=== PATIENT | male | born 1985 | race Caucasian/White ===

== ENCOUNTER 2020-01-07 11:48 | Outpatient (CLI) | payer OTHER, SELFPAY ==
[2020-01-07 12:09] VITALS: BMI 34.2
--- NOTE | 2020-01-07 12:09 | ECG_ITS ---
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 Interpretive Statements NAME OF STUDY: TREADMILL STRESS TEST INDICATION: Chest Pain, PROCEDURE: At the baseline, the patient's blood pressure was 124/85 with a heart rate of 103. The baseline electrocardiogram showed sinus tachycardia with normal ST-Ts. Poor R wave progression. Incomplete right bundle branch block. The patient exercised for 5 minutes and 59 seconds on a standard [place] protocol. Patient attained a maximum heart rate of 157 beats per minute(85 % of the maximum predicted heart rate) with a blood pressure at the peak exercise of 193/94 mm Hg. The EKG at the peak exercise revealed no significant changes. Patient did not have any chest pain or any significant cardiac arrhythmias with the exercise During the recovery phase, there were no new changes. Blood pressure at the end of the recovery phase was 142/80 mm Hg with a heart rate of 109 per minute. CONCLUSION: 1. No significant EKG changes with the treadmill exercise. 2. No exercise-induced chest pain or cardiac arrhythmia 3. Impaired exercise tolerance, attained a maximum of 7.0 METs 4. Hypertensive response to exercise Electronically Signed On 01-09-2020 10:50:14 CDT by Arnold Magana M.D. [id number]
[2020-01-07 12:24] VITALS: BP 167/48; PULSE 99
--- NOTE | 2020-01-07 15:00 | USCV_ITS ---
Tim Mercer Age: 34 Gender: M : 1985 Exam Date: 01/07/2020 12:42 Ordering Phys: Arnold Magana MD ([email or web address]) Technologist: Marysol Robin [place] [facility] [place]: BALS AND CHEST PAIN BP: / HR: 102 Rhythm: Sinus Technical Quality: Very technically difficult study MEASUREMENTS (Male / Female) Normal Values 2D ECHO LV Diastolic Diameter PLAX 4.5 cm 4.2 - 5.9 / 3.9 - 5.3 cm LV Systolic Diameter PLAX 3.2 cm LV Chamber Size 3.2 cm IVS Diastolic Thickness 1.6 cm 0.6 - 1.0 / 0.6 - 0.9 cm IVS Systolic Thickness 1.5 cm LVPW Diastolic Thickness 1.2 cm 0.6 - 1.0 / 0.6 - 0.9 cm LVPW Systolic Thickness 1.8 cm RV Chamber Size 2.7 cm LVOT Diameter 2.1 cm LV Ejection Fraction 2D Teich 55.9 % LV Ejection Fraction MOD 2C 50.4 % LV Ejection Fraction 2C AL 51.2 % LA Diameter 3.8 cm LA Width 3.3 cm LA Height 3.8 cm RA Width 2.6 cm RA Height 3.2 cm Aorta at Sinotubular Diameter 3.2 cm M-MODE LV Diastolic Diameter MM 4.1 cm 4.2 - 5.9 / 3.9 - 5.3 cm LV Systolic Diameter MM 2.3 cm LV Ejection Fraction MM Teich 74.2 % IVS Diastolic Thickness MM 1.0 cm 0.6 - 1.0 / 0.6 - 0.9 cm IVS Systolic Thickness MM 1.4 cm LVPW Diastolic Thickness MM 0.9 cm 0.6 - 1.0 / 0.6 - 0.9 cm LVPW Systolic Thickness MM 1.7 cm RV Diastolic Diameter MM 1.8 cm Aortic Annulus Diameter 3.3 cm LA Ao Ratio MM 1.1 MV E Point Septal Separation 0.7 cm DOPPLER AV Peak Velocity 141.0 cm/s LVOT Peak Velocity 98.0 cm/s AV Area Cont Eq vti 2.8 cm squared AV Area Cont Eq pk 2.3 cm squared MV Area PHT 8.1 cm squared Mitral E to A Ratio 0.9 MV E' Velocity 75.0 cm/s TR Peak Velocity 123.3 cm/s TR Peak Gradient 6.1 mmHg TR Mean Velocity 87.8 cm/s TR Mean Gradient 3.6 mmHg TR Velocity Time Integral 26.0 cm TV Peak E Velocity 85.0 cm/s Right Atrial Pressure 3.0 mmHg Pulmonary Artery Systolic Pressu 9.1 mmHg PV Peak Velocity 90.0 cm/s RV Acceleration Time 0.2 s RV Ejection Time 0.3 s RV AcT/ET 0.7 FINDINGS Left Ventricle Normal left ventricular size and systolic function, EF 55 %. No regional wall motion abnormalities. Right Ventricle Possibly of normal size ejection fraction Right Atrium The right atrium is normal in size. Left Atrium The left atrium is normal in size. Mitral Valve No gross abnormalities noted . Aortic Valve No gross abnormalities noted . Tricuspid Valve Trace tricuspid valve regurgitation. Pulmonic Valve Pulmonic valve not well visualized. Pericardium No pericardial effusion. Aorta Normal ascending aorta dimension. CONCLUSIONS Normal left ventricular size and systolic function, EF 55 %. No regional wall motion abnormalities. Trace tricuspid valve regurgitation. There is no pericardial effusion. There are no intracardiac masses. No previous study is available for comparison. Dr Arnold Magana MD FACC (Electronically Signed) Final Date: 07 January 2020 17:58 S
== END 2020-01-07 11:49 | disposition home or self-care (01) ==
LOC: CDL 11:51
PROVIDERS: PCP Electrodiagnostic Medicine; Visit Provider Internal Medicine Cardiovascular Disease
DX: R07.9 Chest pain, unspecified (principal); R06.02 Shortness of breath; R06.00 Dyspnea, unspecified; I07.1 Rheumatic tricuspid insufficiency
CPT/HCPCS: 93017; 93306

== ENCOUNTER 2020-11-28 19:37 | Emergency (ER) | payer OTHER, SELFPAY ==
[2020-11-28 19:56] VITALS: BP 119/83; PULSE 88; RESP 17; TEMP 36.7; O2SAT 98; BMI 40.4
--- NOTE | 2020-11-28 22:16 | ECG_ITS ---
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 Measurements Intervals [place] Rate: 76 P: 14 NV: 167 QRS: 8 QRSD: 101 T: 46 QT: 363 QTc: 409 Interpretive Statements SINUS RHYTHM INDETERMINATE AXIS ATYPICAL ECG No previous ECG available for comparison Electronically Signed On 11-29-2020 21:10:48 CDT by Arnold Magana M.D. [id number]
--- NOTE | 2020-11-28 22:35 | XRR_ITS ---
PROCEDURE INFORMATION: Exam: XR Chest Exam date and time: 11/28/2020 10:35 PM Age: 35 years old Clinical indication: Other: Dizzy; Additional info: Dizziness TECHNIQUE: Imaging protocol: XR of the chest. Views: 1 view. COMPARISON: No relevant prior studies available. FINDINGS: Lungs: Unremarkable. No consolidation. Pleural spaces: Unremarkable. No pleural effusion. No pneumothorax. Heart/Mediastinum: Unremarkable. No cardiomegaly. Bones/joints: Unremarkable. XR/XR chest 1V portable [id number] IMPRESSION: No acute findings.
[2020-11-28 22:49] LABS: Basophils % 0.5 %; Eosinophils # 0.2 10^3/uL (0.0-0.8); Eosinophils % 2.4 %; Hematocrit 44.1 % (42.0-52.0); Lymphocytes # 3.5 10^3/uL (0.8-4.8); Lymphocytes % 41.9 %; Mean Corpuscular Hemoglobin 32.7 pg (28.0-34.0); Mean Corpuscular Volume 96.1 fL (80-94); Mean Platelet Volume 9.3 fL (7.4-10.4); Monocytes # 0.6 10^3/uL (0.2-0.9); Monocytes % 6.6 %; Neutrophils # 4.03 10^3/uL (1.8-7.7); Neutrophils % 48.1 %; Nucleated Red Blood Cells % 0 %; Platelet Count 285 10^3/cmm (130-400); Red Blood Count 4.59 10^6/uL (4.1-5.3); Red Cell Distribution Width 11.9 % (12.1-15.1); White Blood Count 8.4 10^3/uL (4.0-10.0)
[2020-11-28 23:06] LABS: Troponin(5th) Baseline 6 ng/L (0-15)
[2020-11-28 23:07] LABS: Alanine Aminotransferase 24 U/L (0-41); Albumin Level 3.7 g/dL (3.5-5.2); Alkaline Phosphatase 96 IU/L (40-130); Anion Gap 15.9 (5-19); Aspartate Amino Transferase 16 U/L (0-40); Blood Urea Nitrogen 13 mg/dL (6-20); Calcium 9.2 mg/dL (8.5-10.5); Carbon Dioxide 26 mmol/L (22-29); Chloride 100 mmol/L (98-107); Globulin 2.8 g/dL (1.3-4.6); Glomerular Filtration Rate 75.3 mL/min (90-130); Glucose 101 mg/dL (65-115); Lipase 33 U/L (13-60); Osmolality Calculated 286 mOsm/kg (285-295); Potassium 3.9 mmol/L (3.5-5.1); Sodium 138 mmol/L (136-145); Total Bilirubin 0.2 mg/dL (0.15-1.2); Total Protein 6.5 g/dL (6.6-8.7)
[2020-11-28 23:20] VITALS: BP 118/78; BP 123/85; BP 128/77; PULSE 79; PULSE 80; PULSE 88
[2020-11-28 23:49] VITALS: BP 142/46; PULSE 73; RESP 18; O2SAT 98
[2020-11-28 23:49] LABS: Add Urine Microscopic? NO; Charge for UA Resulting for Rev
[2020-11-29 00:04] LABS: Bilirubin Urine Neg (Negative); Blood Urine Neg (Negative); Glucose Urine UA 2+ (Normal); Ketones Urine Negative (Negative); Leukocyte Esterase Urine Negative (Negative); Nitrate Urine Negative (Negative); Protein Urine Neg (Negative); Specific Gravity, Urine 1.015 (1.005-1.030); Urine Appearance Clear (CLEAR); Urine Color Yellow (Yellow); Urobilinogen Urine Norm (Negative); pH Urine 5 (5-7)
[2020-11-29 00:13] VITALS: BP 138/81; PULSE 78; RESP 16; O2SAT 98
[2020-11-29 00:41] LABS: Troponin 5 2HR Delta 0 ABS# (0-10)
--- NOTE | 2020-11-29 00:55 | W.ED.DIZZY ---
HPI - Dizziness General: Chief Complaint: Abdominal Pain Stated Complaint: irregular hr/high bp Time Seen by Provider: 11/28/20 22:10 Source: patient and family () Mode of arrival: ambulatory Limitations: no limitations History of Present Illness: HPI Narrative: Patient is a 35-year-old male with a history of hypertension who presents to the emergency department with complaints of dizziness and presyncopal episode, some abnormal sensation at the back of his head. He denies any chest pain or difficulty breathing. Denies any cough. Denies any diarrhea but endorsed some abdominal pain earlier today. The pain has resolved now. He is here to be evaluated because he does not feel well. MD elicited complaint: dizziness and lightheadedness Onset (ago): hour(s) Timing: sudden onset Severity: moderate History of similar symptoms: No Exacerbating factors: nothing Relieving factors: nothing Associated symptoms: Reports nausea; Denies change in hearing, chest pain, chills, cough, diaphoresis, ear discharge, ear pressure, fevers/chills, headache(s), malaise, nasal congestion, palpitations, rash, short of breath, syncope, tinnitus, vomiting or weakness Associated neuro symptoms: Deny confusion, difficulty speaking, dysphagia, diplopia, extremity weakness, facial numbness, facial weakness, gait changes, numbness in extremities or visual changes Review of Systems General: Reports: 10 or more systems reviewed and unremarkable except in HPI and below Const: Denies: chills, malaise or diaphoresis ENMT: Denies: ear discharge, change in hearing, tinnitus or nasal congestion Card: Denies: chest pain, palpitations or syncope GI: Reports: nausea; Denies: vomiting or dysphagia Neuro: Denies: headache(s), numbness in extremities or confusion PFS ED PFSH: Medical History (Reviewed 11/29/20 @ 01:19 by Greg Osuna MD, [facility] [place]) Atypical chest pain Benign essential HTN BLAS (dyspnea on exertion) History of hypertension Hx of chest pain Hx of obesity Obstructive sleep apnea Surgical History (Reviewed 11/29/20 @ 01:19 by Greg Osuna MD, [facility] [place]) H/O hand surgery History of appendectomy History of throat surgery S/P ACL repair Family History (Reviewed 11/29/20 @ 01:19 by Greg Osuna MD, [facility] [place]) Other CAD (coronary artery disease) Diabetes Hypertension Lung disease Psychiatric illness Denies family history of Dementia Hyperlipidemia Chronic kidney disease (CKD) Family history of premature coronary artery disease Cancer Stroke Social History (Reviewed 11/29/20 @ 01:19 by Greg Osuna MD, [facility] [place]) Smoking and tobacco status: former smoker Quit status (tobacco): has quit using tobacco Year quit tobacco: 2009 Alcohol intake: never Lives independently: Yes Household members: spouse and children Housing: House Marital status: Current occupational status: employed 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 [employer] Physical Exam Const: COMMON NORMALS: no acute distress, average body habitus, patient oriented x3, no limitations, healthy appearing, alert and well nourished HENMT: COMMON NORMALS: normocephalic, atraumatic and moist oral mucous membranes HEAD & SCALP: normocephalic and atraumatic Eye: COMMON NORMALS: Equal, round and reactive pupils present, EOMs intact bilaterally, conjunctivae normal and no scleral icterus CONJUNCTIVA: Yes conjunctivae normal PUPIL: Yes Equal, round and reactive pupils present Neck/C-Spine: COMMON NORMALS: full ROM, supple, no meningeal signs, no JVD and No carotid bruits Chest: COMMONS NORMALS: normal inspection of the chest and normal palpation of entire chest wall Resp: COMMON NORMALS: normal respiratory effort, No retractions, No use of accessory muscles, clear to auscultation bilaterally and percussion normal AUSCULTATION: clear to auscultation bilaterally PERCUSSION: percussion normal Cardio: COMMON NORMALS: no JVD, regular rate, regular rhythm, S1 normal heart sound present, S2 normal heart sound present, No gallops present (Cardio), No clicks present (Cardio), No murmurs present (Cardio), No rub (Cardio) and Peripheral pulses 2+ throughout RATE: regular rate RHYTHM: regular rhythm HEART SOUNDS: S1 normal heart sound present and S2 normal heart sound present PERIPHERAL PULSES: Peripheral pulses 2+ throughout GI: COMMON NORMALS: Normal to inspection, nondistended, normoactive bowel sounds present, Soft to palpation, non-tender, No hepatosplenomegaly present, no masses and no bruits PALPATION: Yes Soft to palpation and Yes No hepatosplenomegaly present Extremity: COMMON NORMALS: normal to inspection, full ROM, capillary refill normal, no calf tenderness and no pedal edema Neuro: COMMON NORMALS: patient oriented x3 SENSORIUM/ORIENTATION: Yes alert MENINGEAL SIGNS: Yes no meningeal signs Skin: COMMON NORMALS: no rashes or lesions noted, no wounds, turgor normal, no jaundice, no petechiae and no mottling GENERAL SKIN EXAM: no rashes or lesions noted and turgor normal Course Reevaluation(s): Reevaluation #1: Discussed lab and imaging findings with patient and his . Negative for acute findings. He will be discharged home with no new orders. They voiced understanding and agreement with the plan. Time: 00:56 Vital Signs: Vital signs: Vital Signs Temperature 98.0 F 11/28/20 19:56 Pulse Rate 78 11/29/20 01:05 Respiratory Rate 18 11/29/20 01:05 Blood Pressure 112/84 11/29/20 01:05 Pulse Oximetry 98 11/29/20 01:05 MDM - Dizziness MDM Narrative: Medical decision making narrative: 35-year-old male who presents to the emergency department with nonspecific concerns but his main complaint was dizziness and lightheadedness. Evaluation in the emergency department was unremarkable with negative high-sensitivity troponin x2. He also has negative orthostatic vital signs. Examination not concerning. He is therefore discharged home with no new orders. Medical Records: Attestation: I reviewed the patient's medical records. Lab Data: Attestation: I reviewed the patient's lab results. Labs: Lab Results 11/28/20 11/28/20 11/28/20 Range/Units 22:23 22:23 22:23 WBC 8.4 (4.0-10.0) 10^3/ uL RBC 4.59 (4.1-5.3) 10^6/u L Hgb 15.0 (11.7-16.6) g/dL Hct 44.1 (42.0-52.0) % MCV 96.1 H (80-94) fL MCH 32.7 (28.0-34.0) pg MCHC 34.0 (30.0-36.0) g/dL RDW 11.9 L (12.1-15.1) % Plt Count 285 (130-400) 10^3/c mm MPV 9.3 (7.4-10.4) fL Neut % (Auto) 48.1 % Lymph % (Auto) 41.9 % George % (Auto) 6.6 % Eos % (Auto) 2.4 % Baso % (Auto) 0.5 % Neut # (Auto) 4.03 (1.8-7.7) 10^3/u L Lymph # (Auto) 3.5 (0.8-4.8) 10^3/u L George # (Auto) 0.6 (0.2-0.9) 10^3/u L Eos # (Auto) 0.2 (0.0-0.8) 10^3/u L Baso # (Auto) 0.0 (0.0-0.1) 10^3/u L Nucleated RBC % (a uto) 0 % Nucleated RBCs # 0.0 /100WBC Sodium 138 (136-145) mmol/L Potassium 3.9 (3.5-5.1) mmol/L Chloride 100 (98-107) mmol/L Carbon Dioxide 26 (22-29) mmol/L Anion Gap 15.9 (5-19) BUN 13 (6-20) mg/dL Creatinine 1.1 (0.7-1.2) mg/dL GFR Calculation 75.3 L (90-130) mL/min Glucose 101 (65-115) mg/dL Calculated Osmolal ity 286 (285-295) mOsm/k g Calcium 9.2 (8.5-10.5) mg/dL Total Bilirubin 0.2 (0.15-1.2) mg/dL AST 16 (0-40) U/L ALT 24 (0-41) U/L Alkaline Phosphata se 96 (40-130) IU/L Troponin T Baselin e 6 (0-15) ng/L Troponin T 120 Min [place] (0-15) ng/L Delta Troponin T (0-10) ABS# Total Protein 6.5 L (6.6-8.7) g/dL Albumin 3.7 (3.5-5.2) g/dL Globulin 2.8 (1.3-4.6) g/dL Lipase 33 (13-60) U/L Urine Color (Yellow) Urine Appearance (CLEAR) Urine pH (5-7) Ur Specific Gravit y (1.005-1.030) Urine Protein (Negative) Urine Glucose (UA) (Normal) Urine Ketones (Negative) Urine Blood (Negative) Urine Nitrate (Negative) Urine Bilirubin (Negative) Urine Urobilinogen (Negative) mg/dL Ur Leukocyte Shalini ase (Negative) 11/28/20 11/29/20 Range/Units 23:41 00:15 WBC (4.0-10.0) 10^3/ uL RBC (4.1-5.3) 10^6/u L Hgb (11.7-16.6) g/dL Hct (42.0-52.0) % MCV (80-94) fL MCH (28.0-34.0) pg MCHC (30.0-36.0) g/dL RDW (12.1-15.1) % Plt Count (130-400) 10^3/c mm MPV (7.4-10.4) fL Neut % (Auto) % Lymph % (Auto) % George % (Auto) % Eos % (Auto) % Baso % (Auto) % Neut # (Auto) (1.8-7.7) 10^3/u L Lymph # (Auto) (0.8-4.8) 10^3/u L George # (Auto) (0.2-0.9) 10^3/u L Eos # (Auto) (0.0-0.8) 10^3/u L Baso # (Auto) (0.0-0.1) 10^3/u L Nucleated RBC % (a uto) % Nucleated RBCs # /100WBC Sodium (136-145) mmol/L Potassium (3.5-5.1) mmol/L Chloride (98-107) mmol/L Carbon Dioxide (22-29) mmol/L Anion Gap (5-19) BUN (6-20) mg/dL Creatinine (0.7-1.2) mg/dL GFR Calculation (90-130) mL/min Glucose (65-115) mg/dL Calculated Osmolal ity (285-295) mOsm/k g Calcium (8.5-10.5) mg/dL Total Bilirubin (0.15-1.2) mg/dL AST (0-40) U/L ALT (0-41) U/L Alkaline Phosphata se (40-130) IU/L Troponin T Baselin e (0-15) ng/L Troponin T 120 Min [place] 6.00 (0-15) ng/L Delta Troponin T 0 (0-10) ABS# Total Protein (6.6-8.7) g/dL Albumin (3.5-5.2) g/dL Globulin (1.3-4.6) g/dL Lipase (13-60) U/L Urine Color Yellow (Yellow) Urine Appearance Clear (CLEAR) Urine pH 5 (5-7) Ur Specific Gravit y 1.015 (1.005-1.030) Urine Protein Neg (Negative) Urine Glucose (UA) 2+ (Normal) Urine Ketones Negative (Negative) Urine Blood Neg (Negative) Urine Nitrate Negative (Negative) Urine Bilirubin Neg (Negative) Urine Urobilinogen Norm (Negative) mg/dL Ur Leukocyte Shalini ase Negative (Negative) Imaging Data^: CXR: Attestation: I personally reviewed and interpreted this imaging study as follows: Radiologist's impression: [address] [id number] ReportSigned Patient: Tim Mercer #: [id number]: 1985Acct#:[id number]/Sex: 35 / MADM Date: 11/28/20Loc: ERRoom/Bed:Attending Dr: Ordering Provider/Ordering MD: Greg Osuna MD, [facility] [place] Date of Service: 11/28/20 Procedure(s): XR chest 1V portable [id number] Accession Number(s): [id number] Report Number: [id number] PROCEDURE INFORMATION: Exam: XR Chest Exam date and time: 11/28/2020 10:35 PM Age: 35 years old Clinical indication: Other: Dizzy; Additional info: Dizziness TECHNIQUE: Imaging protocol: XR of the chest. Views: 1 view. COMPARISON: No relevant prior studies available. FINDINGS: Lungs: Unremarkable. No consolidation. Pleural spaces: Unremarkable. No pleural effusion. No pneumothorax. Heart/Mediastinum: Unremarkable. No cardiomegaly. Bones/joints: Unremarkable. XR/XR chest 1V portable [id number] IMPRESSION: No acute findings. Dictated By:Pranav Kevin MDSigned By:Pranav Kevin MDSigned Date/Time:11/28/202357DD/ 57 EKG Data^: EKG 1: Attestation: I personally reviewed and interpreted this EKG as follows: EKG interpretation date: 11/28/20 EKG interpretation time: 22:24 Prior EKG tracings: not available for review Interpretation: Sinus rhythm. Heart rate [address] changes. EKG 2: Attestation: I personally reviewed and interpreted this EKG as follows: EKG interpretation date: 11/29/20 EKG interpretation time: 00:04 Prior EKG tracings: available for review Interpretation: Sinus rhythm. Heart rate [address] changes. No significant change from earlier today. Discharge Plan Discharge Patient Disposition: Home Clinical Impression: Pre-syncope Condition: Stable Prescriptions: Continued lisinopril 10 mg tablet 10 mg PO DAILY 30 Days Qty: 30 RF: 5 Discharge Orders: Discharge ED (Routine); Ordered 11/29/20 Ordered By: Greg Osuna Referrals: Usman Carias DO [Primary Care Provider] - 1-3 days Discharge Diet: Usual diet Discharge Activity: Increase activity as tolerated Patient Instructions: Near Syncope (ED), Dizziness (ED) Activity Restrictions/Additional Instructions: Return for any new or worsening symptoms. Follow-up with your primary care provider within 3 days. Continue your home medications. Coding Level of Care Code ED Human Resources Director for Tisha Tinajero
[2020-11-29 01:05] VITALS: BP 112/84; PULSE 78; RESP 18; O2SAT 98
== END 2020-11-29 01:05 | disposition home or self-care (01) ==
PROVIDERS: Physician Assistant; Emergency Provider Family Medicine; PCP Electrodiagnostic Medicine
DX: R55 Syncope and collapse (principal); I10 Essential (primary) hypertension; Z87.891 Personal history of nicotine dependence
CPT/HCPCS: 71045; 80053; 81003; 83690; 84484; 85025; 93005; 99284

== ENCOUNTER 2022-08-04 02:24 | Emergency (ER) | payer OTHER, SELFPAY ==
[2022-08-04 02:34] VITALS: BP 157/105; PULSE 100; RESP 18; TEMP 36.4; O2SAT 98; BMI 41.8
--- NOTE | 2022-08-04 02:34 | CTR_ITS ---
PROCEDURE INFORMATION: Exam: CT Abdomen And Pelvis Without Contrast Exam date and time: 08/04/2022 3:04 AM Age: 37 years old Clinical indication: Nausea and vomiting; Abdominal pain; Right; Prior surgery; Surgery type: Appy; Patient HX: C/O RT flank pain with n/v. ; Additional info: R flank pain TECHNIQUE: Imaging protocol: Computed tomography of the abdomen and pelvis without contrast. Radiation optimization: All CT scans at this facility use at least one of these dose optimization techniques: automated exposure control; mA and/or kV adjustment per patient size (includes targeted exams where dose is matched to clinical indication); or iterative reconstruction. REPORTING DATA: Count of CT and Cardiac NM exams in prior 12 months: This patient has received 0 known CTs and 0 known cardiac nuclear medicine studies in the 12 months prior to the current study. COMPARISON: CR XR chest 1V portable [id number] 11/28/2020 10:31 PM RADIATION DOSE METRICS: Total DLP (mGy-cm): 1240.63 FINDINGS: Lungs: The visualized lung bases are clear. Liver: Liver is large and markedly hypodense. Gallbladder and bile ducts: No calcified gallstones or biliary dilation identified. Pancreas: Unremarkable with no suspicious mass. No ductal dilation. Spleen: The spleen is not enlarged. No suspicious mass is noted. Adrenal glands: Normal. No mass. Kidneys and ureters: Tiny bilateral kidney stones measure up to about 3 mm. Mild right hydroureter. Right UVJ 1 mm calculus causes mild obstruction. Stomach and bowel: Mild sigmoid diverticulosis. No small bowel obstruction, abscess or free air. Appendix: Absent appendix. Intraperitoneal space: Unremarkable. No free air. No suspicious fluid collection. Vasculature: Mild vascular calcification. Lymph nodes: Nonspecific mild bilateral groin lymph nodes. Urinary bladder: Unremarkable as visualized. Reproductive: Unremarkable as visualized. Bones/joints: Mild spine DJD. Soft tissues: Tiny fat umbilical hernia. Small fat in both inguinal rings. CT/CT kidney stone [id number] IMPRESSION: 1. Right UVJ 1 mm calculus causes mild obstruction. 2. Minimal bilateral nephrolithiasis, markedly fatty liver, and other chronic findings above.
--- NOTE | 2022-08-04 02:35 | ED_ITS ---
HPI - Male Genitourinary General: Chief complaint: Abdominal Pain Stated complaint: R flank pain, n/v Time Seen by Provider: 08/04/22 02:27 Source: patient Mode of arrival: ambulatory Limitations: no limitations History of Present Illness: 37-year-old male states that he started having right-sided flank pain last night at 8 PM. He states he is also had nausea and vomiting states pain is currently a 4 out of 10 he states he has had some discomfort urination as well denies any fever denies any worsening improving factors. No history of kidney stones in the past. Denies any penile discharge denies any testicle pain. Associated symptoms: Reports dysuria, nausea and vomiting Review of Systems Const: Denies: fever(s), chills, body aches or change in appetite Eyes: Denies: blurry vision or eye discomfort ENMT: Denies: throat pain or dental pain Card: Denies: chest pain Resp: Denies: dyspnea GI: Reports: nausea and vomiting : Reports: flank pain and dysuria Musc: Denies: neck pain or back pain Skin/Breast: Denies: rash Neuro: Denies: headache(s) Psych: Denies: depression Madi/Lymph: Denies: easy bruising All/Imm: Denies: urticaria PFSH ED PFSH: Medical History Atypical chest pain Benign essential HTN BLAS (dyspnea on exertion) History of hypertension Hx of chest pain Hx of obesity Obstructive sleep apnea Surgical History H/O hand surgery History of appendectomy History of throat surgery S/P ACL repair Family History Other CAD (coronary artery disease) Diabetes Hypertension Lung disease Psychiatric illness Denies family history of Dementia Hyperlipidemia Chronic kidney disease (CKD) Family history of premature coronary artery disease Cancer Stroke Social History Smoking and tobacco status: former smoker Quit status (tobacco): has quit using tobacco Year quit tobacco: 2009 Alcohol intake: never Lives independently: Yes Household members: spouse and children Housing: House Marital status: Current occupational status: employed 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 [employer] Physical Exam Const: COMMON NORMALS: no acute distress, patient oriented x3 and healthy appearing HENMT: COMMON NORMALS: normocephalic and atraumatic HEAD & SCALP: normocephalic and atraumatic Eye: COMMON NORMALS: Equal, round and reactive pupils present and EOMs intact bilaterally PUPIL: Yes Equal, round and reactive pupils present Neck/C-Spine: COMMON NORMALS: full ROM and supple Chest: COMMONS NORMALS: normal inspection of the chest and normal palpation of entire chest wall Resp: COMMON NORMALS: normal respiratory effort, No retractions, No use of accessory muscles and clear to auscultation bilaterally AUSCULTATION: clear to auscultation bilaterally Cardio: COMMON NORMALS: regular rate, regular rhythm and No murmurs present (Cardio) RATE: regular rate RHYTHM: regular rhythm GI: COMMON NORMALS: Normal to inspection, nondistended, normoactive bowel sounds present, Soft to palpation, non-tender and no masses PALPATION: Yes Soft to palpation Extremity: COMMON NORMALS: normal to inspection and full ROM Neuro: COMMON NORMALS: patient oriented x3, moves all extremities and no focal motor deficits Psych: COMMON NORMALS: mental status grossly normal, Normal thought process present and cooperative THOUGHT PROCESS: Normal thought process present Skin: COMMON NORMALS: no rashes or lesions noted and no wounds GENERAL SKIN EXAM: no rashes or lesions noted Course Vital Signs: Vital signs: Vital Signs Temperature 97.6 F 08/04/22 02:34 Pulse Rate 90 08/04/22 03:42 Respiratory Rate 16 08/04/22 02:44 Blood Pressure 151/112 08/04/22 04:00 Pulse Oximetry 95 08/04/22 04:00 MDM - Male Medical Decision Making Patient presents here with kidney stone along with slight UTI stone is very small getting ready to pass I did speak to Dr. Frias feels he is stable for discharge at this time as well. I spoke to patient at length to limit he is a possible UTI and that if he has any symptoms as vomiting increased pain or fever he is to return to the ER immediately he understands this his pain is controlled currently we will prescribe him antibiotics along with pain meds for home along with a urine strainer. Lab Data 08/04/22 02:39 08/04/22 02:39 Radiology Impressions Abdomen/Pelvis CT 08/04/22 02:34 IMPRESSION: 1. Right UVJ 1 mm calculus causes mild obstruction. 2. Minimal bilateral nephrolithiasis, markedly fatty liver, and other chronic findings above. Laboratory Results WBC 10.8 10^3/uL (4.0-10.0) H 08/04/22 02:39 RBC 4.74 10^6/uL (4.1-5.3) 08/04/22 02:39 Hgb 15.5 g/dL (11.7-16.6) 08/04/22 02:39 Hct 45.5 % (42.0-52.0) 08/04/22 02:39 MCV 96.0 fl (80-94) H 08/04/22 02:39 MCH 32.7 pg (28.0-34.0) 08/04/22 02:39 MCHC 34.1 g/dL (30.0-36.0) 08/04/22 02:39 RDW 12.4 % (12.1-15.1) 08/04/22 02:39 Plt Count 234 10^3/cmm (130-400) 08/04/22 02:39 MPV 9.0 fL (7.4-10.4) 08/04/22 02:39 Neut % (Auto) 75.4 % 08/04/22 02:39 Lymph % (Auto) 17.1 % 08/04/22 02:39 Gregg % (Auto) 5.1 % 08/04/22 02:39 Eos % (Auto) 1.5 % 08/04/22 02:39 Baso % (Auto) 0.5 % 08/04/22 02:39 Neut # (Auto) 8.16 10^3/uL (1.8-7.7) H 08/04/22 02:39 Lymph # (Auto) 1.9 10^3/uL (0.8-4.8) 08/04/22 02:39 Gregg # (Auto) 0.6 10^3/uL (0.2-0.9) 08/04/22 02:39 Eos # (Auto) 0.2 10^3/uL (0.0-0.8) 08/04/22 02:39 Baso # (Auto) 0.1 10^3/uL (0.0-0.1) 08/04/22 02:39 Nucleated RBC % (auto) 0 % 08/04/22 02:39 Nucleated RBCs # 0.0 /100WBC 08/04/22 02:39 Sodium 138 mmol/L (136-145) 08/04/22 02:39 Potassium 4.1 mmol/L (3.5-5.1) 08/04/22 02:39 Chloride 100 mmol/L (98-107) 08/04/22 02:39 Carbon Dioxide 24 mmol/L (22-29) 08/04/22 02:39 Anion Gap 18.1 (5-19) 08/04/22 02:39 BUN 9 mg/dL (6-20) 08/04/22 02:39 Creatinine 1.3 mg/dL (0.7-1.2) H 08/04/22 02:39 GFR Calculation 61.5 mL/min (90-130) L 08/04/22 02:39 Glucose 135 mg/dL (65-115) H 08/04/22 02:39 Calculated Osmolality 287 mOsm/kg (285-295) 08/04/22 02:39 Calcium 8.7 mg/dL (8.5-10.5) 08/04/22 02:39 Total Bilirubin 0.5 mg/dL (0.15-1.2) 08/04/22 02:39 AST 26 U/L (0-40) 08/04/22 02:39 ALT 43 U/L (0-41) H 08/04/22 02:39 Alkaline Phosphatase 104 U/L (40-130) 08/04/22 02:39 Total Protein 7.5 g/dL (6.6-8.7) 08/04/22 02:39 Albumin 3.9 g/dL (3.5-5.2) 08/04/22 02:39 Globulin 3.6 g/dL (1.3-4.6) 08/04/22 02:39 Lipase 25 U/L (13-60) 08/04/22 02:39 Urine Color [place] (Yellow) 08/04/22 03:18 Urine Appearance Clear (CLEAR) 08/04/22 03:18 Urine pH 5 (5-7) 08/04/22 03:18 Ur Specific [place] 1.020 (1.005-1.030) 08/04/22 03:18 Urine Protein 3+ (Negative) H 08/04/22 03:18 Urine Glucose (UA) Norm (Normal) 08/04/22 03:18 Urine Ketones Negative (Negative) 08/04/22 03:18 Urine Blood 3+ (Negative) H 08/04/22 03:18 Urine Nitrate Positive (Negative) H 08/04/22 03:18 Urine Bilirubin 2+ (Negative) H 08/04/22 03:18 Urine Urobilinogen 8 mg/dL (Negative) H 08/04/22 03:18 Ur Leukocyte Esterase Negative (Negative) 08/04/22 03:18 Urine RBC 15-25 /hpf (0-2) H 08/04/22 03:18 Urine WBC 0-4 /hpf (0-5) H 08/04/22 03:18 Ur Squamous Epith Cells 0-4 /hpf (0-5) H 08/04/22 03:18 Amorphous Sediment Not Reportable 08/04/22 03:18 Urine Bacteria 1+ /hpf (NONE) H 08/04/22 03:18 Urine Mucus 1+ /hpf 08/04/22 03:18 Discharge Plan Discharge Patient Disposition: Home Clinical Impression: Kidney stone, Acute cystitis Condition: Stable Prescriptions: New hydrocodone-acetaminophen 5-325 mg tablet 1 tab PO Q6H PRN (Reason: pain) Qty: 14 0RF cephalexin 500 mg capsule 500 mg PO TID 7 Days Qty: 21 0RF ondansetron 4 mg tablet,disintegrating 4 mg PO Q6H PRN (Reason: nausea and vomiting) Qty: 14 0RF Naprosyn 500 mg tablet 500 mg PO BID PRN (Reason: pain) Qty: 20 0RF Discharge Orders: Discharge ED (Routine); Ordered 08/04/22 Ordered By: Kaykay Valdez Referrals: Kedar Frias MD [Physician] - 1-3 days Lei Pablo DO [Primary Care Provider] - Discharge Diet: Advance as tolerated Discharge Activity: Resume usual activity Patient Instructions: Kidney Stones (ED), Opioid Safety Coding Level of Care Code ED [place] for Tisha Tinajero
[2022-08-04 02:44] VITALS: RESP 16; O2SAT 97
[2022-08-04 02:44] LABS: Basophils # 0.1 10^3/uL (0.0-0.1); Basophils % 0.5 %; Eosinophils # 0.2 10^3/uL (0.0-0.8); Eosinophils % 1.5 %; Hematocrit 45.5 % (42.0-52.0); Hemoglobin 15.5 g/dL (11.7-16.6); Lymphocytes # 1.9 10^3/uL (0.8-4.8); Lymphocytes % 17.1 %; Mean Corpuscular HGB Conc 34.1 g/dL (30.0-36.0); Mean Corpuscular Hemoglobin 32.7 pg (28.0-34.0); Monocytes # 0.6 10^3/uL (0.2-0.9); Monocytes % 5.1 %; Neutrophils # 8.16 10^3/uL (1.8-7.7); Neutrophils % 75.4 %; Nucleated Red Blood Cells % 0 %; Platelet Count 234 10^3/cmm (130-400); Red Blood Count 4.74 10^6/uL (4.1-5.3); Red Cell Distribution Width 12.4 % (12.1-15.1); White Blood Count 10.8 10^3/uL (4.0-10.0)
[2022-08-04] MEDS: HYDROmorphone 1 mg/mL INJ 1 mL IVP (02:44)
[2022-08-04] MEDS: ondansetron 2 mg/ML SDV 2 mL 4 MG IVP (02:44)
[2022-08-04] MEDS: sodium chloride 0.9% 1,000 ML 999 ML IV (02:46)
[2022-08-04 03:16] LABS: Alanine Aminotransferase 43 U/L (0-41); Albumin Level 3.9 g/dL (3.5-5.2); Alkaline Phosphatase 104 U/L (40-130); Anion Gap 18.1 (5-19); Aspartate Amino Transferase 26 U/L (0-40); Blood Urea Nitrogen 9 mg/dL (6-20); Calcium 8.7 mg/dL (8.5-10.5); Carbon Dioxide 24 mmol/L (22-29); Chloride 100 mmol/L (98-107); Globulin 3.6 g/dL (1.3-4.6); Glomerular Filtration Rate 61.5 mL/min (90-130); Glucose 135 mg/dL (65-115); Lipase 25 U/L (13-60); Osmolality Calculated 287 mOsm/kg (285-295); Potassium 4.1 mmol/L (3.5-5.1); Sodium 138 mmol/L (136-145); Total Bilirubin 0.5 mg/dL (0.15-1.2); Total Protein 7.5 g/dL (6.6-8.7)
[2022-08-04 03:42] VITALS: BP 151/102; PULSE 90; O2SAT 96
[2022-08-04 04:00] VITALS: BP 151/112; O2SAT 95
[2022-08-04 04:04] LABS: Bilirubin Urine 2+ (Negative); Blood Urine 3+ (Negative); Glucose Urine UA Norm (Normal); Ketones Urine Negative (Negative); Nitrate Urine Positive (Negative); Protein Urine 3+ (Negative); Urine Appearance Clear (CLEAR); Urine Color Orange (Yellow); Urobilinogen Urine 8 mg/dL (Negative); pH Urine 5 (5-7)
[2022-08-04 04:05] LABS: Add Urine Microscopic? YES; Leukocyte Esterase Urine Negative (Negative)
[2022-08-04 04:06] LABS: Bacteria Urine 1+ /hpf; RBC Urine 15-25 /hpf (0-2); WBC Urine 0-4 /hpf (0-5)
[2022-08-04 04:07] LABS: Mucus Urine 1+ /hpf; Squamous Epithelial Cell Urine 0-4 /hpf (0-5)
[2022-08-04 04:09] LABS: Add Urine Culture? Yes
[2022-08-04] MEDS: cefTRIAXone 1,000 MG in sodium chloride 0.9% (plus) 50 ML 100 MG IV (04:15)
[2022-08-04 05:53] VITALS: BP 142/100; PULSE 85; RESP 16; O2SAT 96
--- NOTE | 2022-08-04 08:27 | DCPLANNER ---
Addendum entered by Natasha Nevarez 08/10/22 07:20: Patient had an appointment scheduled with urology - patient did attend appointment. Original Note: soda fountain manager had message to schedule a follow up appointment for patient with urology. soda fountain manager sent patients information to the front office staff at urology. Patients information will be printed and reviewed. Clinic will call patient with appointment information.
== END 2022-08-04 05:55 | disposition home or self-care (01) ==
PROVIDERS: Emergency Provider Emergency Medicine; PCP Family Medicine
DX: N30.00 Acute cystitis without hematuria (principal); N20.0 Calculus of kidney; Z87.891 Personal history of nicotine dependence; I10 Essential (primary) hypertension
CPT/HCPCS: 74176; 80053; 81001; 83690; 85025; 87086; 96365; 96375; 99285; J0696; J1170; J2405; J7030

== ENCOUNTER 2022-08-09 10:12 | Outpatient (CLI) | payer OTHER, SELFPAY ==
--- NOTE | 2022-08-09 10:27 | XR_ITS ---
WS: [id number] K[facility], AP view, 08/09/2022 Clinical Data: stones Comparison: CT abdomen pelvis, 08/04/2022 Findings: No abnormal intraabdominal masses or calcifications are seen. There is no dilatated small bowel or ev idence of obstruction. There is minimal gas throughout the colon. XR/XR KUB [id number] Impression: Negative KUB.
== END 2022-08-09 10:13 | disposition home or self-care (01) ==
PROVIDERS: PCP Family Medicine; Visit Provider Urology
DX: N20.0 Calculus of kidney (principal)
CPT/HCPCS: 74018

== ENCOUNTER → 2022-12-14 09:03 | Outpatient (BNVA) | payer OTHER, SELFPAY | PROVIDERS: PCP Family Medicine; Visit Provider Family Medicine | DX: Z00.00 Encounter for general adult medical examination without abnormal findings (principal); G47.33 Obstructive sleep apnea (adult) (pediatric); N20.9 Urinary calculus, unspecified; K76.0 Fatty (change of) liver, not elsewhere classified; I10 Essential (primary) hypertension; L30.9 Dermatitis, unspecified; K64.9 Unspecified hemorrhoids; E66.9 Obesity, unspecified; Z76.89 Persons encountering health services in other specified circumstances | CPT/HCPCS: 80053 ==

== ENCOUNTER 2023-01-23 11:31 | Outpatient (CLI) | payer OTHER, SELFPAY | END 2023-01-23 11:32 | disposition home or self-care (01) | LOC: SLEEP 01-24 11:36 | PROVIDERS: PCP Family Medicine; Visit Provider Family Medicine | DX: G47.33 Obstructive sleep apnea (adult) (pediatric) (principal) | CPT/HCPCS: G0399 ==

== ENCOUNTER 2023-02-24 09:30 | Emergency (ER) | payer OTHER, SELFPAY ==
[2023-02-24 09:33] VITALS: BP 156/106; PULSE 105; RESP 18; TEMP 36.5; O2SAT 94; BMI 37.9
[2023-02-24 09:39] VITALS: PULSE 80
[2023-02-24 09:46] VITALS: BP 156/106; PULSE 101; RESP 16; O2SAT 97
--- NOTE | 2023-02-24 09:57 | W.ED.EXTPRO ---
HPI - Extremity Problem General: Chief complaint: Extremity Problem,Nontraumatic Stated complaint: right foot pain Time Seen by Provider: 02/24/23 09:40 Source: patient Mode of arrival: ambulatory History of Present Illness: 38-year-old male presents emergency room complaining of ankle pain. Isolates pain to the insertion of the right Achilles tendon. No trauma no injury no recent increase in exercise no falls no jumping activities recently MD Complaint: extremity pain Onset (ago): day(s) Pain Consistency: constant Location: right Radiation: none Relieving factors: nothing Exacerbating factors: nothing Associated symptoms: Deny arthralgias, chest pain, fever(s), myalgias, rash, short of breath or other Review of Systems Const: Denies: fever(s) Card: Denies: chest pain Musc: Reports: joint pain Skin/Breast: Denies: rash PFSH ED PFSH: Medical History Diverticulosis Fatty liver Hepatomegaly Obesity Obstructive sleep apnea Umbilical hernia Urolithiasis Surgical History History of appendectomy History of hand surgery right 5th digit History of repair of anterior cruciate ligament of left knee History of uvulopalatopharyngoplasty Family History Mother No problems noted. Other CAD (coronary artery disease) Diabetes Hypertension Lung disease Psychiatric illness Denies family history of Dementia Hyperlipidemia Chronic kidney disease (CKD) Family history of premature coronary artery disease Cancer Stroke Social History Smoking and tobacco status: former smoker Quit status (tobacco): has quit using tobacco Year quit tobacco: 2009 Alcohol intake: former Year of sobriety/quit date alcohol: 2020 Substance/Drug Use: never Lives independently: Yes Household members: spouse and children Housing: House Marital status: Number of children: 3 Current occupational status: employed 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 Tenderness palpably intact patient will flex and extend dorsum plantar flex strength 4/5 due to pain dorsalis pedis posterior tibialis pulses present normal. No evidence of cyanosis in the foot. No deformity Course Vital Signs: Vital signs: Vital Signs Temperature 97.7 F 02/24/23 09:33 Pulse Rate 100 02/24/23 10:26 Respiratory Rate 16 02/24/23 09:46 Blood Pressure 156/106 02/24/23 10:26 Pulse Oximetry 99 02/24/23 10:26 Oxygen Delivery Me thod Room Air 02/24/23 09:46 MDM - Extremity (Nontraumatic) Medical Decision Making Achilles tendinitis*antiinflammatories weightbearing as tolerated if worsening or change recheck with primary care Lab Data Radiology Impressions Foot X-Ray 02/24/23 09:58 IMPRESSION: No acute findings. No radiology studies performed this visit Discharge Plan Discharge Patient Disposition: Home Clinical Impression: Achilles tendonitis Condition: Stable Prescriptions: New diclofenac sodium 75 mg tablet,delayed release (DR/EC) 75 mg PO Q12H PRN (Reason: pain) Qty: 20 0RF No Action triamcinolone acetonide 0.1 % cream 1 applic topical DAILY Qty: 30 0RF hydrocortisone 2.5 % cream with perineal applicator 1 applic [place] DAILY PRN (Reason: hemorrhoids) Qty: 30 0RF (DME) Auto-Titrating CPAP Device See Rx Instructions .Route Qty: 1 0RF Rx Instructions: As directed Discharge Orders: Discharge ED (Routine); Ordered 02/24/23 Ordered By: Agustin Barrientos Referrals: Debbie Martinez MD [Primary Care Provider] - Discharge Diet: Usual diet Discharge Activity: Increase activity as tolerated Patient Instructions: Achilles Tendinitis (ED), Opioid Safety, Pain Management Coding Level of Care Code 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
--- NOTE | 2023-02-24 09:58 | XRR_ITS ---
PROCEDURE INFORMATION: Exam: XR Right Foot Exam date and time: 02/24/2023 10:01 AM Age: 38 years old Clinical indication: Pain; Heel; Right TECHNIQUE: Imaging protocol: Radiologic exam of the right foot. Views: 3 or more views. COMPARISON: No relevant prior studies available. FINDINGS: Bones/joints: No acute fracture or dislocation. Mineralization is normal. Joint spacing and alignment are maintained. Tiny calcific density at the medial plantar great toe distal phalanx base may represent sequela of prior trauma. Soft tissues: Unremarkable. XR/XR foot RT min 3V* [id number] IMPRESSION: No acute findings.
[2023-02-24 10:26] VITALS: BP 156/106; PULSE 100; O2SAT 99
== END 2023-02-24 10:30 | disposition home or self-care (01) ==
PROVIDERS: Emergency Provider Family Medicine; PCP Family Medicine
DX: M76.61 Achilles tendinitis, right leg (principal); Z87.891 Personal history of nicotine dependence
CPT/HCPCS: 73630; 99283; E0114

== ENCOUNTER → 2023-03-27 14:17 | Outpatient (BNVA) | payer OTHER, SELFPAY | PROVIDERS: PCP Family Medicine; Visit Provider Family Medicine | DX: R39.9 Unspecified symptoms and signs involving the genitourinary system (principal) | CPT/HCPCS: 81000 ==

== ENCOUNTER 2023-12-24 07:59 | Emergency (ER) | payer SELFPAY ==
[2023-12-24 08:09] VITALS: BP 129/99; PULSE 96; TEMP 36.7; O2SAT 95; BMI 38.3
--- NOTE | 2023-12-24 08:12 | ED_ITS ---
HPI - Skin/Abscess/Foreign Bdy General: Chief complaint: Skin/Abscess/Foreign Body Stated complaint: Rash that is all over Time Seen by Provider: 12/24/23 08:08 History of Present Illness: 38-year-old man who presents emergency r oom with a rash. This started about 10 days ago. About 5 days ago he was started on a course of steroids and says the rash has gotten worse since then. Is on his upper arms on his legs worse on his thighs and onto his buttocks. He has some lesions on his stomach. Erythematous circular well-circumscribed lesions. He says they itch and burn. Review of Systems Narrative: Constitutional symptoms: Negative except as documented in HPI. Skin symptoms: Negative except as documented in HPI. Eye symptoms: Negative except as documented in HPI. ENMT symptoms: Negative except as documented in HPI. Respiratory symptoms: Negative except as documented in HPI. Cardiovascular symptoms: Negative except as documented in HPI. Gastrointestinal symptoms: Negative except as documented in HPI. Genitourinary symptoms: Negative except as documented in HPI. Musculoskeletal symptoms: Negative except as documented in HPI. Neurologic symptoms: Negative except as documented in HPI. Psychiatric symptoms: Negative except as documented in HPI. Endocrine symptoms: Negative except as documented in HPI. PFSH ED PFSH: Medical History Diverticulosis Fatty liver Hepatomegaly Obesity Obstructive sleep apnea Umbilical hernia Urolithiasis Surgical History History of appendectomy History of hand surgery right 5th digit History of repair of anterior cruciate ligament of left knee History of uvulopalatopharyngoplasty Family History Mother No problems noted. Other CAD (coronary artery disease) Diabetes Hypertension Lung disease Psychiatric illness Denies family history of Dementia Hyperlipidemia Chronic kidney disease (CKD) Family history of premature coronary artery disease Cancer Stroke Social History Smoking and tobacco/nicotine status: former use of tobacco/nicotine Quit status (tobacco/nicotine): has quit using Year quit tobacco: 2009 Alcohol intake: former Year of sobriety/quit date alcohol: 2020 Substance/Drug Use: never Lives independently: Yes Household members: spouse and children Housing: House Marital status: Number of children: 3 Current occupational status: employed 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 Skin: warm and dry. Beefy red lesions. Circular. Well-circumscribed. 1 to 3 cm. Some of them are coalescing. These are on his upper arms. Legs and thighs. Some lesions on his abdomen. Head: Normocephalic Neck: Trachea midline Eye: Extraocular movements are intact. Ears, nose, mouth and throat: Oral mucosa moist Respiratory: Respirations are non-labored Musculoskeletal: Normal ROM Neurological: Alert and oriented, No focal neurological deficit observed. Psychiatric: Cooperative, appropriate mood & affect. Course Vital Signs: Vital signs: Vital Signs Temperature 98.1 F 12/24/23 08:09 Pulse Rate 95 12/24/23 08:25 Blood Pressure 125/89 12/24/23 08:25 Pulse Oximetry 93 12/24/23 08:25 Oxygen Delivery Me thod Room Air 12/24/23 08:25 MDM - Skin/Abscess/Foreign Bdy Medicial Decision Making Consultation: I spoke with Dr. Robins, housekeeping worker [place]. He reviewed images of the rash. He recommends antibiotics to cover staph and strep. Doxycycline and Bactrim. He will work patient in clinic this afternoon. Assessment and plan: - Discharged home - Discussed plan with patient. Answered any questions. - Evaluation and treatment of this problem were appropriate in the emergency setting. No radiology studies performed this visit Discharge Plan Discharge Patient Disposition: Home Clinical Impression: Rash Condition: Stable Prescriptions: New doxycycline monohydrate 100 mg capsule 100 mg PO BID 10 Days Qty: 20 0RF No Action ciprofloxacin HCl [Cipro] 500 mg tablet 500 mg PO Q12H Qty: 14 0RF (DME) Auto-Titrating CPAP Device See Rx Instructions .Route Qty: 1 0RF Rx Instructions: As directed triamcinolone acetonide 0.1 % cream See Rx Instructions .ROUTE .COMPLEX Qty: 30 2RF Dose Instruction: APPLY TOPICALLY DAILY Rx Instructions: APPLY TOPICALLY DAILY prednisone 20 mg tablet 20 mg PO DAILY Qty: 5 0RF diclofenac sodium 75 mg tablet,delayed release (DR/EC) 75 mg PO Q12H PRN (Reason: pain) Qty: 20 0RF Discharge Orders: Discharge ED (Routine); Ordered 12/24/23 Ordered By: Amanda Harris Referrals: Miguel Angel Robins MD [Referring] - 12/24/23 1:10 pm (Please arrive at clinic about 30 minutes prior to appointment time at 1:10 PM.) Debbie Martinez MD [Primary Care Provider] - Discharge Diet: Usual diet Discharge Activity: Resume usual activity Patient Instructions: Cellulitis (ED) Activity Restrictions/Additional Instructions: Thank you for choosing [facility] for your healthcare needs today. Please realize this is an emergency room and that we are providing you with a medical screening exam and this may not be complete and all inclusive of all the testing and or work up that you may need to determine your ailment or severity of your illness. You have been screened and evaluated and felt safe for discharge. Health conditions do change or evolve sometimes and as such it is important that you follow up with your Primary Doctor to be re checked, 3-5 days is a general good time frame for follow up. You are always welcome to return to the ED for re assessment if your symptoms are worsening or you have new concerns Coding Level of Care Code ED L[employer] for Tisha Tinajero
[2023-12-24 08:25] VITALS: BP 125/89; PULSE 95; O2SAT 93
[2023-12-24 08:53] VITALS: BP 122/96; PULSE 95; O2SAT 97
== END 2023-12-24 08:50 | disposition home or self-care (01) ==
PROVIDERS: Emergency Provider Emergency Medicine; PCP Family Medicine
DX: R21 Rash and other nonspecific skin eruption (principal); Z87.891 Personal history of nicotine dependence
CPT/HCPCS: 99283

== ENCOUNTER → 2024-03-14 12:23 | Outpatient (BNVA) | payer SELFPAY | PROVIDERS: PCP Family Medicine; Visit Provider Family Medicine | DX: R30.0 Dysuria (principal) | CPT/HCPCS: 81000 ==

== ENCOUNTER 2024-07-29 18:48 | Inpatient (IN) | payer OTHER, SELFPAY ==
[2024-07-29 18:53] VITALS: BP 142/86; PULSE 122; RESP 20; TEMP 36.5; O2SAT 96; BMI 36.2
--- NOTE | 2024-07-29 19:14 | ED.C_ITS ---
HPI - Psych 2 General: Chief Complaint: Psychiatric Symptoms Stated Complaint: SI Time Seen by Provider: 07/29/24 18:55 Source: patient Mode of arrival: ambulatory Limitations: no limitations History of Present Illness: 39-year-old male is here with depression along with increased suicidal ideations. States he been depressed for years but has been having worsening thoughts he states he did place a gun in his mouth today and had thoughts of shooting himself. Associated symptoms: Reports depression and suicidal ideation Related Data Home Medications ?Medication ?Instructions ?Recorded ?Confirmed dupilumab 100 mg/0.67 mL mg SUBCUT 03/14/24 06/27/24 subcutaneous syringe (Dupixent) Previous Rx's ?Medication ?Instructions ?Recorded CPAP (Auto-Titrating CPAP) #1 ea 02/07/23 triamcinolone acetonide 0.1 % See Rx Instructions .Rou te 11/28/23 topical cream .COMPLEX #30 grams bupropion HCl 150 mg 24 hr tablet, 150 mg PO QAM #90 t abs 07/23/24 extended release (Wellbutrin XL) Allergies Allergy/AdvReac Type Severity Reaction Status Date / Time morphine Allergy Mild ALGY-Hives Verified 07/29/24 18:53 Opioids - Morphine Analogues Allergy Mild ALGY-Hives Verified 07/29/24 18:53 Review of Systems 2 Const: Denies: fever(s), chills, body aches or change in appetite ENMT: Denies: throat pain or dental pain Card: Denies: chest pain Resp: Denies: dyspnea GI: Denies: abdominal pain, nausea, vomiting or diarrhea Musc: Denies: neck pain or back pain Skin/Breast: Denies: rash Neuro: Denies: headache(s) Psych: Reports: depression and suicidal ideation PFS ED 2 PFSH: Medical History Obesity Fatty liver Diverticulosis Umbilical hernia Hepatomegaly Urolithiasis Obstructive sleep apnea Surgical History History of hand surgery right 5th digit History of repair of anterior cruciate ligament of left knee History of uvulopalatopharyngoplasty History of appendectomy Family History Mother No problems noted. Other CAD (coronary artery disease) Diabetes Hypertension Lung disease Psychiatric illness Denies family history of Dementia Hyperlipidemia Chronic kidney disease (CKD) Family history of premature coronary artery disease Cancer Stroke Social History Smoking and tobacco/nicotine status: never used tobacco/nicotine Quit status (tobacco/nicotine): has quit using Year quit tobacco: 2009 Alcohol intake: former Year of sobriety/quit date alcohol: 2020 Substance/Drug Use: never Lives independently: Yes Household members: spouse and children Housing: House Marital status: Number of children: 3 Current occupational status: employed 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 [employer] Do you think of yourself as: Straight/Heterosexual Physical Exam 2 Const: COMMON NORMALS: no acute distress, patient oriented x3 and healthy appearing HENMT: COMMON NORMALS: normocephalic and atraumatic HEAD & SCALP: n ormocephalic and atraumatic Eye: COMMON NORMALS: Equal, round and reactive pupils present and EOMs intact bilaterally PUPIL: Yes Equal, round and reactive pupils present Neck/C-Spine: COMMON NORMALS: full ROM and supple Chest: COMMONS NORMALS: normal inspection of the chest Resp: COMMON NORMALS: normal respiratory effort Cardio: COMMON NORMALS: regular rate, regular rhythm and No murmurs present (Cardio) RATE: regular rate RHYTHM: regular rhythm Extremity: COMMON NORMALS: normal to inspection and full ROM Neuro: COMMON NORMALS: patient oriented x3, moves all extremities and no focal motor deficits Psych: COMMON NORMALS: mental status grossly normal, Normal thought process present and cooperative THOUGHT PROCESS: Normal thought process present T HOUGHT CONTENT: Yes Suicidality present Skin: COMMON NORMALS: no rashes or lesions noted and no wounds GENERAL SKIN EXAM: no rashes or lesions noted Course 2 Vital Signs: Vital signs: Vital Signs Temperature 97.7 F 07/29/24 18:53 Pulse Rate 122 H 07/29/24 18:53 Respiratory Rate 20 H 07/29/24 18:53 Blood Pressure 142/86 07/29/24 18:53 Pulse Oximetry 96 07/29/24 18:53 MDM - Psych Medical Decision Making Patient presents here with suicidal ideations he is placed on a 6-hour hold is medically cleared will admit at this time. Medical Records I reviewed the patient's medical records. Lab Data I reviewed the patient's lab results. 07/29/24 19:12 07/29/24 19:12 Laboratory Results WBC 7.31 10^3/uL (3.29-11.43) 07/29/24 19:12 RBC 4.47 10^6/uL (3.85-5.65) 07/29/24 19:12 Hgb 16.20 g/dL (11.27-16.99) 07/29/24 19:12 Hct 46.6 % (37-53) 07/29/24 19:12 MCV 104.3 fl (82-101) H 07/29/24 19:12 MCH 36.2 pg (27-33) H 07/29/24 19:12 MCHC 34.8 g/dL (30-55) 07/29/24 19:12 RDW 14.3 % (12.1-15.1) 07/29/24 19:12 Plt Count 249 10^3/cmm (157-399) 07/29/24 19:12 MPV 8.8 fL (7.4-10.4) 07/29/24 19:12 Neut % (Auto) 43.6 % 07/29/24 19:12 Lymph % (Auto) 40.6 % 07/29/24 19:12 Rich % (Auto) 9.8 % 07/29/24 19:12 Eos % (Auto) 4.9 % 07/29/24 19:12 Baso % (Auto) 0.7 % 07/29/24 19:12 Neut # (Auto) 3.18 10^3/uL (1.8-7.7) 07/29/24 19:12 Lymph # (Auto) 3.0 10^3/uL (0.8-4.8) 07/29/24 19:12 Rich # (Auto) 0.7 10^3/uL (0.2-0.9) 07/29/24 19:12 Eos # (Auto) 0.4 10^3/uL (0.0-0.8) 07/29/24 19:12 Baso # (Auto) 0.1 10^3/uL (0.0-0.1) 07/29/24 19:12 Nucleated RBC % (auto) 0 % 07/29/24 19:12 Nucleated RBCs # 0.0 /100WBC 07/29/24 19:12 Sodium 142 mmol/L (136-145) 07/29/24 19:12 Potassium 3.3 mmol/L (3.5-5.1) L 07/29/24 19:12 Chloride 102 mmol/L (98-107) 07/29/24 19:12 Carbon Dioxide 27 mmol/L (22-29) 07/29/24 19:12 Anion Gap 16.3 (5-19) 07/29/24 19:12 BUN 7 mg/dL (6-20) 07/29/24 19:12 Creatinine 1.0 mg/dL (0.7-1.2) 07/29/24 19:12 GFR Calculation 82.3 mL/min (90-130) L 07/29/24 19:12 Glucose 130 mg/dL (65-115) H 07/29/24 19:12 Calculated Osmolality 294 mOsm/kg (285-295) 07/29/24 19:12 Calcium 8.8 mg/dL (8.5-10.5) 07/29/24 19:12 Total Bilirubin 0.3 mg/dL (0.15-1.2) 07/29/24 19:12 AST 77 U/L (0-40) H 07/29/24 19:12 ALT 85 U/L (0-41) H 07/29/24 19:12 Alkaline Phosphatase 141 U/L (40-130) H 07/29/24 19:12 Total Protein 7.5 g/dL (6.6-8.7) 07/29/24 19:12 Albumin 4.0 g/dL (3.5-5.2) 07/29/24 19:12 Globulin 3.5 g/dL (1.3-4.6) 07/29/24 19:12 Salicylates < 0.3 mg/dL (3-10) L 07/29/24 19:12 Acetaminophen < 5.0 ug/mL (10-30) L 07/29/24 19:12 No radiology studies performed this visit Discharge Plan Discharge Patient Disposition: Admitted As Inpatient Clinical Impression: Suicidal ideation Condition: Stable Coding Level of Care Code ED [employer] Apprentice for Tisha Tinajero
--- NOTE | 2024-07-29 19:19 | PC.NURSE ---
pts belongings were collected and inventoried by this nurse and [place] from security
[2024-07-29 19:35] LABS: Basophils # 0.1 10^3/uL (0.0-0.1); Basophils % 0.7 %; Eosinophils # 0.4 10^3/uL (0.0-0.8); Eosinophils % 4.9 %; Hematocrit 46.6 % (37-53); Lymphocytes % 40.6 %; Mean Corpuscular HGB Conc 34.8 g/dL (30-55); Mean Corpuscular Hemoglobin 36.2 pg (27-33); Mean Corpuscular Volume 104.3 fl (82-101); Mean Platelet Volume 8.8 fL (7.4-10.4); Monocytes # 0.7 10^3/uL (0.2-0.9); Monocytes % 9.8 %; Neutrophils # 3.18 10^3/uL (1.8-7.7); Neutrophils % 43.6 %; Nucleated Red Blood Cells % 0 %; Platelet Count 249 10^3/cmm (157-399); Red Blood Count 4.47 10^6/uL (3.85-5.65); Red Cell Distribution Width 14.3 % (12.1-15.1); White Blood Count 7.31 10^3/uL (3.29-11.43)
[2024-07-29 19:48] LABS: Acetaminophen < 5.0 ug/mL (10-30); Alanine Aminotransferase 85 U/L (0-41); Alkaline Phosphatase 141 U/L (40-130); Anion Gap 16.3 (5-19); Aspartate Amino Transferase 77 U/L (0-40); Blood Urea Nitrogen 7 mg/dL (6-20); Calcium 8.8 mg/dL (8.5-10.5); Carbon Dioxide 27 mmol/L (22-29); Chloride 102 mmol/L (98-107); Creatinine Clr Calc Pharmacy 126.9862; Globulin 3.5 g/dL (1.3-4.6); Glomerular Filtration Rate 82.3 mL/min (90-130); Glucose 130 mg/dL (65-115); Osmolality Calculated 294 mOsm/kg (285-295); Potassium 3.3 mmol/L (3.5-5.1); Salicylate < 0.3 mg/dL (3-10); Sodium 142 mmol/L (136-145); Total Bilirubin 0.3 mg/dL (0.15-1.2); Total Protein 7.5 g/dL (6.6-8.7)
[2024-07-29] MEDS: LORazepam 2 mg/mL INJ 1 mL 1 MG IM (20:21)
--- NOTE | 2024-07-29 20:28 | PC.NURSE ---
96 [facility] Pt served with copy of 96 [facility] by this RN and security. Pt A&Ox3, pleasant and cooperative. Pt denied questions and need for further education.
[2024-07-29 21:09] VITALS: BP 140/78; PULSE 120; RESP 18; TEMP 36.8; O2SAT 97
[2024-07-29 21:14] LABS: Alcohol Level 227 mg/dL (0-10)
[2024-07-29 21:21] VITALS: BP 142/86; PULSE 122; RESP 20; O2SAT 96
[2024-07-29 21:36] VITALS: BP 140/78; PULSE 120; RESP 18; TEMP 36.8; O2SAT 97
[2024-07-29 21:51] LABS: Bilirubin Urine Negative (Negative); Blood Urine Negative (Negative); Glucose Urine UA Negative (Normal); Ketones Urine Trace (Negative); Leukocyte Esterase Urine Negative (Negative); Nitrate Urine Negative (Negative); Protein Urine Trace (Negative); Specific Gravity, Urine 1.016 (1.005-1.030); Urine Appearance Clear (CLEAR); Urine Color Yellow (Yellow)
[2024-07-29 22:05] LABS: Add Urine Microscopic? YES; Bacteria Urine TRACE /hpf; Mucus Urine TRACE /hpf; RBC Urine 0-4 /hpf (0-2); Squamous Epithelial Cell Urine 0-4 /hpf (0-5); UA Manual Slide Review YES; UA Slide Review UA Slide Review Perf; WBC Urine 0-4 /hpf (0-5)
[2024-07-29 22:17] LABS: Amphetamines Screen Urine Negative (Negative); Barbiturates Screen Urine Negative (Negative); Benzodiazepines Screen Urine Negative (Negative); Cocaine Screen Urine Negative (Negative); Opiate Screen Urine Negative (Negative); PCP Screen Urine Negative (Negative); THC Screen Urine Negative (Negative)
[2024-07-29] MEDS: hyDROXYzine 25 mg Capsule 50 MG PO (22:35)
[2024-07-29] MEDS: trazodone 50 mg Tablet PO (22:35)
[2024-07-30] VITALS: BP 89/58; PULSE 109; RESP 16; TEMP 36.2; O2SAT 100
[2024-07-30 04:00] VITALS: BP 146/97; PULSE 94; RESP 18; TEMP 36.4; O2SAT 98
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
[2024-07-30 07:41] VITALS: BP 143/94; PULSE 117; RESP 18; TEMP 36.7; O2SAT 98
[2024-07-30] MEDS: multivitamin therapeutic Tablet 1 TAB PO (11:49)
[2024-07-30] MEDS: folic acid 1 mg Tablet PO (11:49)
[2024-07-30] MEDS: thiamine 100 mg Tablet PO (11:49)
[2024-07-30 12:00] VITALS: BP 144/92; PULSE 114; RESP 18; TEMP 36.4; O2SAT 100
[2024-07-30 16:00] VITALS: BP 140/97; PULSE 103; RESP 17; TEMP 36.4; O2SAT 99
[2024-07-30 20:00] VITALS: BP 159/98; PULSE 107; RESP 17; TEMP 36.4; O2SAT 99
[2024-07-30] MEDS: trazodone 50 mg Tablet PO (20:28)
[2024-07-31] VITALS: BP 161/106; PULSE 100; RESP 17; TEMP 36.4; O2SAT 100
[2024-07-31] MEDS: LORazepam 2 mg Tablet PO ×2 (00:13→06:24)
[2024-07-31 04:00] VITALS: BP 158/116; PULSE 107; RESP 18; TEMP 36.7; O2SAT 99
--- NOTE | 2024-07-31 06:25 | PC.NURSE ---
this nurse called Dr. Norris on pt vitals. Dr. Norris gave orders to give 2mg ativan PO and recheck BP in 1hr.
[2024-07-31 07:40] VITALS: BP 150/104; PULSE 113; RESP 16; TEMP 36.9; O2SAT 98
[2024-07-31] MEDS: folic acid 1 mg Tablet PO (09:09)
[2024-07-31] MEDS: buPROPion XL (24 HR) 150 mg Tablet PO (09:09)
[2024-07-31] MEDS: multivitamin therapeutic Tablet 1 TAB PO (09:09)
[2024-07-31] MEDS: thiamine 100 mg Tablet PO (09:09)
[2024-07-31 12:00] VITALS: BP 149/90; PULSE 107; RESP 16; TEMP 37.1; O2SAT 100
[2024-07-31 16:00] VITALS: BP 148/97; PULSE 103; RESP 16; TEMP 36.6; O2SAT 99
--- NOTE | 2024-07-31 18:56 | P.NPUPN_ITS ---
Subjective NPU 2 Subjective: Patient presented today reporting he is doing okay. He continued to report that this was all a misunderstanding and did give us permission to talk to his as well as we discussed we would talk to the admitting doctor today. He reports that he just was telling them what he would do or what he thinks he would do if he were in a place where he was really thinking about killing himself. We discussed the fact that his vital signs suggest that he has been drinking more than he is reported. He denies any side effects to the medications. Mental Status Exam 2 MSE Comments: This is white male in hospital scrubs with adequate grooming and limited eye contact. No abnormal movements except for mild psychomotor agitation. Cooperative with exam in mild distress. Speech was slightly decreased rate and normal volume. Mood described as all right, affect slightly subdued. Thought process organized. Thought content: Patient denied suicidal or homicidal ideation, there were no delusions reported or noted, he denied any auditory or visual hallucinations. Reported having thoughts of suicide and thoughts about killing his brother but clarified he had no intentions of acting on them. Described feeling anxious, particularly in confined spaces, and identified feeling depressed over the last three to four years. 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 Described mood as not feeling himself, usually a fun and jokey person. Attention and concentration appeared intact and memory was mostly reliable but none were formally tested. He is alert and oriented x 3. Insight and judgment are limited impulse control impaired. Vitals/I&O/Wt Last Vital Signs Temp 97.9 F 07/31/24 16:00 Pulse 103 H 07/31/24 16:00 Resp 16 07/31/24 16:00 BP 148/97 07/31/24 16:00 Pulse Ox 99 07/31/24 16:00 O2 Del Method Room Air 07/31/24 16:00 07/31/24 07/31/24 08/01/24 14:59 22:59 06:59 Intake Total 0 / 0 Balance 0 / 0 Data NPU 07/29/24 19:12 07/29/24 19:12 A&P Assessment and plan (1) Anxiety: (2) Depression: (3) Suicidal ideation: (4) Obesity: (5) Obstructive sleep apnea: (6) Alcohol use disorder, severe, in early remission, dependence: (7) Alcohol intoxication: (8) Alcohol withdrawal: Plan This is an 39-year-old white male with history of addiction issues as well as depression and anxiety reported more recently. The patient is experiencing a relapse in alcohol use, which has been a recurring issue throughout his life. He reports increased anxiety and feelings of isolation after discontinuing Wellbutrin for approximately three and a half weeks. The patient has expressed having suicidal thoughts, although he denies any intention or plan to act on them. He also reports a history of depression and anxiety, which have been exacerbated by recent stressors, including work-related pressures. The patient acknowledges a history of alcohol abuse and has had a recent episode of heavy drinking, leading to a high blood alcohol level. There is no history of psychiatric hospitalization, and he has not been on any other psychiatric medications besides Wellbutrin. 1. Restart Wellbutrin XL 150 mg in the morning. 2. Encourage individual, group and milieu therapy. 3. Continue every 15 minute checks for safety. 4. Obtain collateral information. 5. Encourage sober living treatment after discharge at the highest level care to which he is willing to commit. 6. Observe against the backdrop of the 96-hour hold for safety. Patient allowed for conversation with after our conversation along with review with admitting doctor determined that he is lying when he said that there was a misunderstanding about what he said. It does appear that he had a gun in his mouth. PDMP PDMP Reviewed: Not Reviewed Attestations NPU 2 Medical Necessity Statement*: Inpatient hospitalization is medically necessary and the clinically appropriate intervention at this time. We will monitor medications and make changes as indicated. Likely length of stay 3-5 days. Coding Level of Care Code Acute Code for g Fwd Diagnoses Anxiety F41.9 Depression F32.A Suicidal ideation R45.851 Obesity E66.9 Obstructive sleep apnea G47.33 Alcohol use disorder, severe, in early remission, dependence F10.21 Alcohol intoxication F10.929 Alcohol withdrawal F10.939
[2024-07-31 20:00] VITALS: BP 154/101; PULSE 105; RESP 17; TEMP 37; O2SAT 100
[2024-07-31] MEDS: trazodone 50 mg Tablet PO (20:13)
[2024-07-31] MEDS: hyDROXYzine 25 mg Capsule 50 MG PO (20:14)
[2024-08-01] VITALS (7 sets, daily range): BP systolic 133–156; BP diastolic 80–112; PULSE 84–114; RESP 16–18; TEMP 36.5–37.1; O2SAT 98–100
[2024-08-01] MEDS: folic acid 1 mg Tablet PO (07:48)
[2024-08-01] MEDS: thiamine 100 mg Tablet PO (07:48)
[2024-08-01] MEDS: LORazepam 2 mg Tablet PO (07:48)
[2024-08-01] MEDS: buPROPion XL (24 HR) 150 mg Tablet PO (07:48)
[2024-08-01] MEDS: multivitamin therapeutic Tablet 1 TAB PO (08:39)
--- NOTE | 2024-08-01 15:39 | P.NPUPN_ITS ---
Subjective NPU 2 Subjective: Patient presents today reporting that he was struggling with being here. He was very frustrated about the fact that he had to stay. We had a long conversation about standard of care for people who have a gun and put it in their mouth. He denied putting in his mouth however he did acknowledge loading the gun and firing it. We discussed the concept of acts of furtherance. We discussed the seriousness of his presentation with he and his who was in agreement that this is a very dangerous situation. 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 We discussed the likelihood that his discharge would not be until next week. He denied any side effects to the medication. Mental Status Exam 2 MSE Comments: This is white male in hospital scrubs with adequate grooming and limited eye contact. No abnormal movements except for mild psychomotor agitation. Cooperative with exam in mild distress. Speech was slightly decreased rate and normal volume. Mood described as all right, affect slightly subdued. Thought process organized. Thought content: Patient denied suicidal or homicidal ideation, there were no delusions reported or noted, he denied any auditory or visual hallucinations. Reported having thoughts of suicide and thoughts about killing his brother but clarified he had no intentions of acting on them. Described feeling anxious, particularly in confined spaces, and identified feeling depressed over the last three to four years. 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 Described mood as not feeling himself, usually a fun and jokey person. Attention and concentration appeared intact and memory was mostly reliable but none were formally tested. He is alert and oriented x 3. Insight and judgment are limited impulse control impaired. Vitals/I&O/Wt Last Vital Signs Temp 97.7 F 08/01/24 04:00 Pulse 108 H 08/01/24 09:25 Resp 16 08/01/24 09:25 BP 145/95 08/01/24 09:25 Pulse Ox 100 08/01/24 09:25 O2 Del Method Room Air 08/01/24 09:25 Data NPU 07/29/24 19:12 07/29/24 19:12 A&P Assessment and plan (1) Anxiety: (2) Depression: (3) Suicidal ideation: (4) Obesity: (5) Obstructive sleep apnea: (6) Alcohol use disorder, severe, in early remission, dependence: (7) Alcohol intoxication: (8) Alcohol withdrawal: Plan This is an 39-year-old white male with history of addiction issues as well as depression and anxiety reported more recently. The patient is experiencing a relapse in alcohol use, which has been a recurring issue throughout his life. He reports increased anxiety and feelings of isolation after discontinuing Wellbutrin for approximately three and a half weeks. The patient has expressed having suicidal thoughts, although he denies any intention or plan to act on them. He also reports a history of depression and anxiety, which have been exacerbated by recent stressors, including work-related pressures. The patient acknowledges a history of alcohol abuse and has had a recent episode of heavy drinking, leading to a high blood alcohol level. There is no history of psychiatric hospitalization, and he has not been on any other psychiatric medications besides Wellbutrin. 1. Restart Wellbutrin XL 150 mg in the morning. 2. Encourage individual, group and milieu therapy. 3. Continue every 15 minute checks for safety. 4. Obtain collateral information. 5. Encourage sober living treatment after discharge at the highest level care to which he is willing to commit. 6. Observe against the backdrop of the 96-hour hold for safety. Patient allowed for conversation with after our conversation along with review with admitting doctor determined that he is lying when he said that there was a misunderstanding about what he said. It does appear that he had a gun in his mouth. Additional information provided by him is to be actually loaded the gun and fired it. PDMP PDMP Reviewed: Not Reviewed Attestations NPU 2 Medical Necessity Statement*: Inpatient hospitalization is medically necessary and the clinically appropriate intervention at this time. We will monitor medications and make changes as indicated. Likely length of stay 3-5 days. Coding Level of Care Code Acute Code for [facility] Fwd Diagnoses Anxiety F41.9 Depression F32.A Suicidal ideation R45.851 Obesity E66.9 Obstructive sleep apnea G47.33 Alcohol use disorder, severe, in early remission, dependence F10.21 Alcohol intoxication F10.929 Alcohol withdrawal F10.939
--- NOTE | 2024-08-01 18:18 | PC.NURSE ---
pt states he twisted ankle when getting out of bed. pt is limping at this time.
--- NOTE | 2024-08-01 18:26 | XRR_ITS ---
PROCEDURE INFORMATION: Exam: XR Right Ankle Exam date and time: 08/01/2024 7:24 PM Age: 39 years old Clinical indication: Injury or trauma; Fall; Sprain or strain; Ankle; Right; Additional info: PT twisted ankle when standing from bed . TECHNIQUE: Imaging protocol: Radiologic exam of the right ankle. Views: 3 or more views. COMPARISON: CR XR foot RT min 3V* [id number] 02/24/2023 10:01 AM FINDINGS: Bones/joints: Normal. Soft tissues: Normal. XR/XR ankle RT min 3V* [id number] IMPRESSION: No acute findings.
[2024-08-01] MEDS: hyDROXYzine 25 mg Capsule 50 MG PO (21:15)
[2024-08-01] MEDS: trazodone 50 mg Tablet PO ×2 (21:15→22:25)
[2024-08-01] MEDS: OLANZapine 5 mg ODT PO (22:25)
[2024-08-02] VITALS: BP 131/91; PULSE 105; RESP 18; O2SAT 97
[2024-08-02] MEDS: haloperidol 5 mg Tablet PO (00:18)
[2024-08-02 03:51] VITALS: BP 135/87; PULSE 99; RESP 18; O2SAT 96
[2024-08-02 07:16] VITALS: BP 126/88; PULSE 100; RESP 16; TEMP 36.9; O2SAT 96
[2024-08-02] MEDS: buPROPion XL (24 HR) 150 mg Tablet PO (08:14)
[2024-08-02] MEDS: multivitamin therapeutic Tablet 1 TAB PO (08:14)
[2024-08-02] MEDS: thiamine 100 mg Tablet PO (08:14)
[2024-08-02] MEDS: folic acid 1 mg Tablet PO (08:14)
[2024-08-02] MEDS: ibuprofen 600 mg Tablet PO (10:15)
--- NOTE | 2024-08-02 11:33 | P.NPUPN_ITS ---
Subjective NPU 2 Subjective: Patient presented today reporting that he is doing okay. He reports that he is tolerating the Wellbutrin without any concerns. We had a discussion about medications to help with cravings including Campral, naltrexone, Antabuse and Vivitrol. We discussed the risks, benefits and alternatives of a trial of ReVia/naltrexone to help with his cravings and recovery from alcohol and he understood and agreed to proceed as is documented in this note. We discussed the possibility of starting that tomorrow. He denied any side effects to the medication and we discussed the possibility of discharge at the beginning of the week. Mental Status Exam 2 MSE Comments: This is white male in hospital scrubs with adequate grooming and limited eye contact. No abnormal movements except for mild psychomotor agitation. Cooperative with exam in mild distress. Speech was slightly decreased rate and normal volume. Mood described as all right, affect slightly subdued. Thought process organized. Thought content: Patient denied suicidal or homicidal ideation, there were no delusions reported or noted, he denied any auditory or visual hallucinations. Reported having thoughts of suicide and thoughts about killing his brother but clarified he had no intentions of acting on them. Described feeling anxious, particularly in confined spaces, and identified feeling depressed over the last three to four years. 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 Described mood as not feeling himself, usually a fun and jokey person. Attention and concentration appeared intact and memory was mostly reliable but none were formally tested. He is alert and oriented x 3. Insight and judgment are limited impulse control impaired. Vitals/I&O/Wt Last Vital Signs Temp 98.5 F 08/02/24 07:16 Pulse 100 08/02/24 07:16 Resp 16 08/02/24 07:16 BP 126/88 08/02/24 07:16 Pulse Ox 96 08/02/24 07:16 O2 Del Method Room Air 08/02/24 07:16 Data NPU 07/29/24 19:12 07/29/24 19:12 A&P Assessment and plan (1) Anxiety: (2) Depression: (3) Suicidal ideation: (4) Obesity: (5) Obstructive sleep apnea: (6) Alcohol use disorder, severe, in early remission, dependence: (7) Alcohol intoxication: (8) Alcohol withdrawal: Plan This is an 39-year-old white male with history of addiction issues as well as depression and anxiety reported more recently. The patient is experiencing a relapse in alcohol use, which has been a recurring issue throughout his life. He reports increased anxiety and feelings of isolation after discontinuing Wellbutrin for approximately three and a half weeks. The patient has expressed having suicidal thoughts, although he denies any intention or plan to act on them. He also reports a history of depression and anxiety, which have been exacerbated by recent stressors, including work-related pressures. The patient acknowledges a history of alcohol abuse and has had a recent episode of heavy drinking, leading to a high blood alcohol level. There is no history of psychiatric hospitalization, and he has not been on any other psychiatric medications besides Wellbutrin. 1. Restart Wellbutrin XL 150 mg in the morning. May consider increasing the dose at discharge. Discussed the possibility of naltrexone moving forward or Vivitrol. 2. Encourage individual, group and milieu therapy. 3. Continue every 15 minute checks for safety. 4. Obtain collateral information. 5. Encourage sober living treatment after discharge at the highest level care to which he is willing to commit. 6. Observe against the backdrop of the 96-hour hold for safety. Patient allowed for conversation with after our conversation along with review with admitting doctor determined that he is lying when he said that there was a misunderstanding about what he said. It does appear that he had a gun in his mouth. Additional information provided by him is to be actually loaded the gun and fired it. PDMP PDMP Reviewed: Not Reviewed Attestations NPU 2 Medical Necessity Statement*: Inpatient hospitalization is medically necessary and the clinically appropriate intervention at this time. We will monitor medications and make changes as indicated. Likely length of stay 2-4 days. Coding Level of Care Code Acute Code for Chg Fwd Diagnoses Anxiety F41.9 Depression F32.A Suicidal ideation R45.851 Obesity E66.9 Obstructive sleep apnea G47.33 Alcohol use disorder, severe, in early remission, dependence F10.21 Alcohol intoxication F10.929 Alcohol withdrawal F10.939
[2024-08-02 11:50] VITALS: BP 123/86; PULSE 100; RESP 16; TEMP 36.9; O2SAT 95
[2024-08-02 16:00] VITALS: BP 140/88; PULSE 72; RESP 16; TEMP 37; O2SAT 100
[2024-08-02 20:00] VITALS: BP 139/93; PULSE 92; RESP 16; TEMP 36.4; O2SAT 99
[2024-08-02] MEDS: OLANZapine 5 mg ODT PO (20:49)
[2024-08-02] MEDS: trazodone 50 mg Tablet PO ×2 (20:49→22:09)
[2024-08-02] MEDS: hyDROXYzine 25 mg Capsule 50 MG PO (22:09)
[2024-08-03] VITALS (7 sets, daily range): BP systolic 131–169; BP diastolic 85–111; PULSE 78–108; RESP 16–18; TEMP 36.5–37; O2SAT 97–100
[2024-08-03] MEDS: LORazepam 2 mg Tablet PO ×2 (00:09→12:35)
[2024-08-03] MEDS: multivitamin therapeutic Tablet 1 TAB PO (08:58)
[2024-08-03] MEDS: buPROPion XL (24 HR) 150 mg Tablet PO (08:58)
[2024-08-03] MEDS: folic acid 1 mg Tablet PO (08:58)
[2024-08-03] MEDS: acetaminophen 325 mg Tablet 650 MG PO (08:58)
[2024-08-03] MEDS: thiamine 100 mg Tablet PO (08:58)
[2024-08-03] MEDS: DUPILUMAB 300 MG/2 ML 300 EACH SUBCUT (10:29)
--- NOTE | 2024-08-03 12:43 | PC.NURSE ---
Pt given 2mg PO Ativan for increased BP, 153/111. Dr. Norris aware/approved.
--- NOTE | 2024-08-03 15:25 | P.NPUPN_ITS ---
Subjective NPU 2 Subjective: Patient presented today reporting that he is doing a little better. His visited again but he did allow his 2 sons to visit and his parents came as well. We had a lengthy conversation about him being able to face those things and be a good example to his kids for how to manage adversity. We discussed the risks, benefits and alternatives of a trial of naltrexone and he understood and agreed to proceed as is documented in this note. We also discussed Vivitrol as a possible intervention. We discussed the likelihood of discharge in the next 48 hours if we are able to make sure that there are no guns in the home and get appropriate discharge appointments and planning in place. He denied any side effects to the medication. Mental Status Exam 2 MSE Comments: This is white male in hospital scrubs with adequate grooming and limited eye contact. No abnormal movements except for mild psychomotor agitation. Cooperative with exam in mild distress. Speech was slightly decreased rate and normal volume. Mood described as a little better, affect slightly subdued, but congruent. Thought process organized. Thought content: Patient denied suicidal or homicidal ideation, there were no delusions reported or noted, he denied any auditory or visual hallucinations. Attention and concentration appeared intact and memory was mostly reliable but none were formally tested. He is alert and oriented x 3. Insight and judgment are limited impulse control impaired. Vitals/I&O/Wt Last Vital Signs Temp 98.6 F 08/03/24 08:00 Pulse 103 H 08/03/24 12:00 Resp 18 08/03/24 12:00 BP 153/111 08/03/24 12:00 Pulse Ox 100 08/03/24 12:00 O2 Del Method Room Air 08/03/24 12:00 Weight last 48 hrs Weight 113.398 kg Data NPU 07/29/24 19:12 07/29/24 19:12 A&P Assessment and plan (1) Anxiety: (2) Depression: (3) Suicidal ideation: (4) Obesity: (5) Obstructive sleep apnea: (6) Alcohol use disorder, severe, in early remission, dependence: (7) Alcohol intoxication: (8) Alcohol withdrawal: Plan This is an 39-year-old white male with history of addiction issues as well as depression and anxiety reported more recently. The patient is experiencing a relapse in alcohol use, which has been a recurring issue throughout his life. He reports increased anxiety and feelings of isolation after discontinuing Wellbutrin for approximately three and a half weeks. The patient has expressed having suicidal thoughts, although he denies any intention or plan to act on them. He also reports a history of depression and anxiety, which have been exacerbated by recent stressors, including work-related pressures. The patient acknowledges a history of alcohol abuse and has had a recent episode of heavy drinking, leading to a high blood alcohol level. There is no history of psychiatric hospitalization, and he has not been on any other psychiatric medications besides Wellbutrin. 1. Restart Wellbutrin XL 150 mg in the morning. May consider increasing the dose at discharge. Discussed the possibility of naltrexone moving forward or Vivitrol. Start naltrexone 50 mg p.o. daily 2. Encourage individual, group and milieu therapy. 3. Continue every 15 minute checks for safety. 4. Obtain collateral information. 5. Encourage sober living treatment after discharge at the highest level care to which he is willing to commit. 6. Observe against the backdrop of the 96-hour hold for safety. Patient allowed for conversation with after our conversation along with review with admitting doctor determined that he is lying when he said that there was a misunderstanding about what he said. It does appear that he had a gun in his mouth. Additional information provided by him is to be actually loaded the gun and fired it. PDMP PDMP Reviewed: Not Reviewed Attestations NPU 2 Medical Necessity Statement*: Inpatient hospitalization is medically necessary and the clinically appropriate intervention at this time. We will monitor medications and make changes as indicated. Likely length of stay 1-3 days. Coding Level of Care Code Acute Code for [facility] Fwd Diagnoses Anxiety F41.9 Depression F32.A Suicidal ideation R45.851 Obesity E66.9 Obstructive sleep apnea G47.33 Alcohol use disorder, severe, in early remission, dependence F10.21 Alcohol intoxication F10.929 Alcohol withdrawal F10.939
[2024-08-03] MEDS: trazodone 50 mg Tablet PO ×2 (20:38→23:04)
[2024-08-03] MEDS: hyDROXYzine 25 mg Capsule 50 MG PO (20:38)
[2024-08-03] MEDS: ibuprofen 600 mg Tablet PO (21:37)
[2024-08-04 04:00] VITALS: BP 118/72; PULSE 114; RESP 17; O2SAT 96
[2024-08-04 07:48] VITALS: BP 140/91; PULSE 98; RESP 16; TEMP 36.3; O2SAT 100
[2024-08-04] MEDS: thiamine 100 mg Tablet PO (08:05)
[2024-08-04] MEDS: buPROPion XL (24 HR) 150 mg Tablet PO (08:05)
[2024-08-04] MEDS: folic acid 1 mg Tablet PO (08:05)
[2024-08-04] MEDS: multivitamin therapeutic Tablet 1 TAB PO (08:05)
[2024-08-04] MEDS: naltrexone hcl 50 mg Tablet PO (08:07)
[2024-08-04 12:00] VITALS: BP 141/91; PULSE 100; RESP 18; TEMP 36.3; O2SAT 99
--- NOTE | 2024-08-04 14:07 | P.NPUDS_ITS ---
Diagnoses at Discharge Discharge Diagnosis (1) Anxiety: Status: Acute (2) Depression: Status: Acute (3) Suicidal ideation: Status: Acute (4) Obesity: Status: Chronic (5) Obstructive sleep apnea: Status: Chronic (6) Alcohol use disorder, severe, in early remission, dependence: Status: Acute (7) Alcohol intoxication: Status: Acute (8) Alcohol withdrawal: Status: Acute Reason for Visit Reason for Visit: SI Mental Status Exam MSE Comments: This is white male in hospital scrubs with adequate grooming and limited eye contact. No abnormal movements except for mild psychomotor agitation. Cooperative with exam in mild distress. Speech was slightly decreased rate and normal volume. Mood described as a little better, affect slightly subdued, but congruent. Thought process organized. Thought content: Patient denied suicidal or homicidal ideation, there were no delusions reported or noted, he denied any auditory or visual hallucinations. Attention and concentration appeared intact and memory was mostly reliable but none were formally tested. He is alert and oriented x 3. Insight and judgment are limited impulse control impaired. Discharge Data Studies Completed and Pending: Completed Studies During Hospitalization Category Date Time Status XR ankle RT min 3 V* [id number] Routine Exams 08/01/24 18:26 Completed Radiology Impressions Ankle X-Ray 08/01/24 18:26 IMPRESSION: No acute findings. Laboratory Results WBC 7.31 10^3/uL (3.2 9-11.43) 07/29/24 19:12 RBC 4.47 10^6/uL (3.8 5-5.65) 07/29/24 19:12 Hgb 16.20 g/dL (11.27 -16.99) 07/29/24 19:12 Hct 46.6 % (37-53) 07/29/24 19:12 MCV 104.3 fl (82-101) H 07/29/24 19:12 MCH 36.2 pg (27-33) H 07/29/24 19:12 MCHC 34.8 g/dL (30-55) 07/29/24 19:12 RDW 14.3 % (12.1-15.1 ) 07/29/24 19:12 Plt Count 249 10^3/cmm (157 -399) 07/29/24 19:12 MPV 8.8 fL (7.4-10.4) 07/29/24 19:12 Neut % (Auto) 43.6 % 07/29/24 19:12 Lymph % (Auto) 40.6 % 07/29/24 19:12 [place] % (Auto) 9.8 % 07/29/24 19:12 Eos % (Auto) 4.9 % 07/29/24 19:12 Baso % (Auto) 0.7 % 07/29/24 19:12 Neut # (Auto) 3.18 10^3/uL (1.8 -7.7) 07/29/24 19:12 Lymph # (Auto) 3.0 10^3/uL (0.8- 4.8) 07/29/24 19:12 [place] # (Auto) 0.7 10^3/uL (0.2- 0.9) 07/29/24 19:12 Eos # (Auto) 0.4 10^3/uL (0.0- 0.8) 07/29/24 19:12 Baso # (Auto) 0.1 10^3/uL (0.0- 0.1) 07/29/24 19:12 Nucleated RBC % (a uto) 0 % 07/29/24 19:12 Nucleated RBCs # 0.0 /100WBC 07/29/24 19:12 Sodium 142 mmol/L (136-1 45) 07/29/24 19:12 Potassium 3.3 mmol/L (3.5-5 .1) L 07/29/24 19:12 Chloride 102 mmol/L (98-10 7) 07/29/24 19:12 Carbon Dioxide 27 mmol/L (22-29) 07/29/24 19:12 Anion Gap 16.3 (5-19) 07/29/24 19:12 BUN 7 mg/dL (6-20) 07/29/24 19:12 Creatinine 1.0 mg/dL (0.7-1. 2) 07/29/24 19:12 GFR Calculation 82.3 mL/min (90-1 30) L 07/29/24 19:12 Glucose 130 mg/dL (65-115 ) H 07/29/24 19:12 Calculated Osmolal ity 294 mOsm/kg (285- 295) 07/29/24 19:12 Calcium 8.8 mg/dL (8.5-10 .5) 07/29/24 19:12 Total Bilirubin 0.3 mg/dL (0.15-1 .2) 07/29/24 19:12 AST 77 U/L (0-40) H 07/29/24 19:12 ALT 85 U/L (0-41) H 07/29/24 19:12 Alkaline Phosphata se 141 U/L (40-130) H 07/29/24 19:12 Total Protein 7.5 g/dL (6.6-8.7 ) 07/29/24 19:12 Albumin 4.0 g/dL (3.5-5.2 ) 07/29/24 19:12 Globulin 3.5 g/dL (1.3-4.6 ) 07/29/24 19:12 Urine Color Yellow (Yellow) 07/29/24 19:57 Urine Appearance Clear (CLEAR) 07/29/24 19:57 Urine pH 6.0 (5-7) 07/29/24 19:57 Ur Specific Gravit y 1.016 (1.005-1.0 30) 07/29/24 19:57 Urine Protein Trace (Negative) A 07/29/24 19:57 Urine Glucose (UA) Negative (Normal ) 07/29/24 19:57 Urine Ketones Trace (Negative) 07/29/24 19:57 Urine Blood Negative (Negati ve) 07/29/24 19:57 Urine Nitrate Negative (Negati ve) 07/29/24 19:57 Urine Bilirubin Negative (Negati ve) 07/29/24 19:57 Urine Urobilinogen 1.0 mg/dL (Negati ve) 07/29/24 19:57 Ur Leukocyte Shalini ase Negative (Negati ve) 07/29/24 19:57 Urine RBC 0-4 /hpf (0-2) H 07/29/24 19:57 Urine WBC 0-4 /hpf (0-5) H 07/29/24 19:57 Ur Squamous Epith Cells 0-4 /hpf (0-5) H 07/29/24 19:57 Amorphous Sediment Not Reportable 07/29/24 19:57 Urine Bacteria Trace /hpf (NONE) 07/29/24 19:57 Urine Mucus Trace /hpf 07/29/24 19:57 Salicylates < 0.3 mg/dL (3-10 ) L 07/29/24 19:12 Urine Opiates Scre en Negative ng/mL (N egative) 07/29/24 19:57 Acetaminophen < 5.0 ug/mL (10-3 0) L 07/29/24 19:12 Ur Barbiturates Sc reen Negative ng/mL (N egative) 07/29/24 19:57 Ur Phencyclidine S crn Negative ng/mL (N egative) 07/29/24 19:57 Ur Amphetamines Sc reen Negative ng/mL (N egative) 07/29/24 19:57 U Benzodiazepines Scrn Negative ng/mL (N egative) 07/29/24 19:57 Urine Cocaine Scre en Negative ng/mL (N egative) 07/29/24 19:57 U Marijuana (THC) Screen Negative ng/mL (N egative) 07/29/24 19:57 Ethyl Alcohol 227 mg/dL (0-10) H 07/29/24 19:12 Vitals: Last Vital Signs Temp 97.4 F L 08/04/24 12:00 Pulse 100 08/04/24 12:00 Resp 18 08/04/24 12:00 BP 141/91 08/04/24 12:00 Pulse Ox 99 08/04/24 12:00 O2 Del Method Room Air 08/03/24 16:00 Discharge Plan Discharge Patient Disposition: Home Condition: Stable Prescriptions: New trazodone 50 mg Tablet 50 mg PO BEDTIME PRN (Reason: Insomnia) 30 Days Qty: 30 1RF naltrexone 50 mg Tablet 50 mg PO DAILY 30 Days Qty: 30 1RF thiamine mononitrate (vit B1) [Vitamin B-1 (mononitrate)] 100 mg Tablet 100 mg PO DAILY 30 Days Qty: 30 1RF hydroxyzine pamoate 25 mg Capsule 50 mg PO Q6H PRN (Reason: Anxiety) 30 Days Qty: 120 1RF Continued (DME) Auto-Titrating CPAP Device See Rx Instructions .Route Qty: 1 0RF Rx Instructions: As directed Dupixent Pen 300 mg/2 mL Pen Injector 300 mg SUBCUT DIRECTED Rx Instructions: INJECT 300MG (1 INJECTION) SUBCUTANEOUSLY EVERY OTHER WEEK. bupropion HCl [Wellbutrin XL] 150 mg tablet extended release 24 hr 150 mg PO QAM 90 Days Qty: 90 0RF Discharge Orders: Discharge Order (Routine); Ordered 08/04/24 Ordered By: Shakeel Norris Referrals: [facility] [Other] - 4-7 days (A message was left to give you a call. Call them if you have not received a call within 3-4 days.) [facility] [Outside] Debbie Martinez MD [Primary Care Provider] - Discharge Diet: Regular Discharge Activity: Resume usual activity Patient Instructions: Opioid Safety Discharge Attestations NPU Time Spent in Discharge Care*: less than 30 min Specific Discharge Activities: Specific discharge activities: educating pa tient, discussing with case manager specialist/social workers/dc planners, documenting/other paperwork and evaluating patient/reviewing data Coding Level of Care Code Acute Code for [facility] Fwd Diagnoses Anxiety F41.9 Depression F32.A Suicidal ideation R45.851 Obesity E66.9 Obstructive sleep apnea G47.33 Alcohol use disorder, severe, in early remission, dependence F10.21 Alcohol intoxication F10.929 Alcohol withdrawal F10.939
[2024-08-04 14:32] VITALS: BP 141/91; PULSE 100; RESP 18; TEMP 36.3; O2SAT 99
== END 2024-08-04 15:54 | disposition home or self-care (01) | DRG 881 ==
LOC: ER 20:30 → NP 07-30 07:56
PROVIDERS: Admitting Provider Psychiatry & Neurology Psychiatry; Emergency Provider Emergency Medicine; PCP Family Medicine; Visit Provider Psychiatry & Neurology Psychiatry
DX: F32.A Depression, unspecified (principal); R45.851 Suicidal ideations; F10.239 Alcohol dependence with withdrawal, unspecified; E66.9 Obesity, unspecified; Z68.34 Body mass index [BMI] 34.0-34.9, adult; K76.0 Fatty (change of) liver, not elsewhere classified; K57.90 Diverticulosis of intestine, part unspecified, without perforation or abscess without bleeding; G47.33 Obstructive sleep apnea (adult) (pediatric); F10.229 Alcohol dependence with intoxication, unspecified; Y90.7 Blood alcohol level of 200-239 mg/100 ml; K70.0 Alcoholic fatty liver; F41.9 Anxiety disorder, unspecified; T43.296A Underdosing of other antidepressants, initial encounter; Z91.128 Patient's intentional underdosing of medication regimen for other reason; Z81.1 Family history of alcohol abuse and dependence; Z82.0 Family history of epilepsy and other diseases of the nervous system
CPT/HCPCS: 73610; 80053; 80306; 80307; 81001; 85025; 96372; 97150; 97165; 99285; J2060

== ENCOUNTER 2024-08-13 12:43 | Outpatient (CLI) | payer OTHER, SELFPAY ==
--- NOTE | 2024-08-13 12:56 | XR_ITS ---
WS: [id number] Right foot, 3 views, 08/13/2024 Clinical Data: FOOT PAIN Comparison: Right foot, 02/24/2023 Findings: No fractures or dislocations are seen. No bone destruction or erosion is noted. The joint spaces and soft tissues are normal. XR/XR foot RT min 3V* [id number] Impression: Negative right foot.
== END 2024-08-13 12:44 | disposition home or self-care (01) ==
PROVIDERS: PCP Family Medicine; Visit Provider Family Medicine
DX: M79.671 Pain in right foot (principal)
CPT/HCPCS: 73630

== ENCOUNTER → 2025-01-21 08:35 | Outpatient (BNVA) | payer OTHER, SELFPAY | PROVIDERS: PCP Family Medicine; Visit Provider Student in an Organized Health Care Education/Training Program | DX: M20.011 Mallet finger of right finger(s) (principal); M24.541 Contracture, right hand | CPT/HCPCS: 73130 ==